=== PATIENT | female | born 1955 | race Caucasian/White ===

== ENCOUNTER → 2016-11-09 | Outpatient (CLI) | payer OTHER | LOC: FIMAGING 08:29 | PROVIDERS: ATTEND Surgery | DX: K22.8 Other specified diseases of esophagus (principal); K44.9 Diaphragmatic hernia without obstruction or gangrene; R13.10 Dysphagia, unspecified; E04.1 Nontoxic single thyroid nodule ==

== ENCOUNTER 2017-02-08 10:39 | Observation (INO) | payer OTHER ==
[2017-02-08] MEDS ORDERED: LR 1,000 ML IV SCH (11:00)
[2017-02-08] MEDS ORDERED: CLINDAMYCIN 900 MG/DEXTROSE 50 ML IV ONE (11:00)
[2017-02-08] MEDS ORDERED: NITROGLYCERIN 0.4 MG BTL SL PRN (11:01)
[2017-02-08] MEDS ORDERED: LR 1,000 ML IV ONE (11:09)
--- NOTE | 2017-02-08 12:58 | PDANEPAE ---
ANE History of Present Illness 61 yo F with L thyroid mass here for thyroidectomy ANE Past Medical History - Cardiovascular History Hx Hypertension: Yes Hx Arrhythmias: No Hx Chest Pain: Yes Hx Coronary Artery / Peripheral Vascular Disease: Yes Hx CHF / Valvular Disease: No Hx Palpitations: No - Pulmonary History Hx COPD: No Hx Asthma/Reactive Airway Disease: No Hx Recent Upper Respiratory Infection: No Hx Oxygen in Use at Home: No - Neurologic History Hx Cerebrovascular Accident: No Hx Seizures: No Hx Dementia: No - Endocrine History Hx Diabetes: Yes - Renal History Hx Renal Disorders: Yes - Liver History Hx Hepatic Disorders: No - Neurological & Psychiatric Hx Hx Neurological and Psychiatric Disorders: No - Cancer History Hx Cancer: No - Congenital Disorder History Hx Congenital Disorders: No - GI History Hx Gastrointestinal Disorders: Yes - Chronic Pain History Chronic Pain: Yes (LOWER ABCK AND BILATERAL LEGS) ANE Review of Systems - Exercise capacity Exercise capacity: >=4 METS METS (RN): 4 METS - Systems Cardiac: Reports: chest pain - Cardio Pulmonary Function Testing Transthoracic echocardiogram (TTE): 10/2015 EF=60-65% otherwise normal ANE Patient History - Allergies Allergies/Adverse Reactions: ergot alkaloids [Ergot Alkaloids] Allergy (Severe, Verified 01/29/17 15:08) cant walk Penicillins Allergy (Severe, Verified 01/29/17 15:08) Rash cefaclor [From Ceclor] Allergy (Intermediate, Verified 01/29/17 15:07) bruising cyclobenzaprine HCl [From Flexeril] Allergy (Mild, Verified 01/29/17 15:08) rash, swelling metoclopramide HCl [From Reglan] Allergy (Mild, Verified 01/29/17 15:08) anxiety attacks plastic tape Allergy (Intermediate, Uncoded 01/29/17 15:08) - Home Medications Home Medications: Aspirin EC [Aspirin EC 81 mg (*)] 81 mg PO DAILY 01/29/17 [Last Taken 02/08/17] Atorvastatin Calcium [Lipitor 20 mg (*)] 20 mg PO DAILY 01/29/17 [Last Taken ] Cholecalciferol Vit D3 [Vitamin D3 (*)] 1,000 units PO DAILY 01/29/17 [Last Taken 01/31/17] Lisinopril [Zestril 10 mg (*)] 10 mg PO DAILY 01/29/17 [Last Taken 02/07/17] Metoprolol Tartrate [Lopressor 25 mg (*)] 25 mg PO BID 01/29/17 [Last Taken ] Nitroglycerin [Nitrostat 0.4 mg (*)] 0.4 mg SL AD PRN 01/29/17 [Last Taken 01/24] [place]-3 Fatty Acids [Fish Oil 1000 mg (*)] 2,000 mg PO DAILY 01/29/17 [Last Taken 01/31/17] metFORMIN HCL [Metformin HCl] 500 mg PO BIDMEAL 01/29/17 [Last Taken 02/07/17] - NPO status NPO Since - Liquids (Date): 02/08/17 NPO Since - Liquids (Time): 07:45 NPO Since - Solids (Date): 02/07/17 NPO Since - Solids (Time): 23:45 - Anes Hx Anes Hx: post operative nausea and vomiting - Smoking Hx Smoking Status: Never smoked - Alcohol Use Alcohol Use: None - Family Anes Hx Family Anes Hx: none ANE Labs/Vital Signs - Vital Signs Blood Pressure: 131/74 Heart Rate: 68 Respiratory Rate: 14 O2 Sat (%): 93 Height: 157.48 cm Weight: 79.379 kg ANE Physical Exam - Airway Neck exam: FROM Mallampati Score: Class 3 Mouth exam: normal dental/mouth exam - Pulmonary Pulmonary: no rales or rhonchi, clear to auscultation - Cardiovascular Cardiovascular: regular rate and rhythym, no murmur, rub, or gallop - ASA Status ASA Status: III ANE Anesthesia Plan Anesthesia Plan: general endotracheal anesthesia (NIM tube)
[2017-02-08] MEDS ORDERED: MIDAZOLAM 2 MG/2 ML VIAL IVP ONE (13:00)
--- NOTE | 2017-02-08 13:05 | PDHPUP ---
History & Physical Update H&P update statement: This history and physical update is based on an assessment of the patient which was completed after admission or registration (within 24 hours), but prior to the surgery/procedure.
[2017-02-08] MEDS ORDERED: SCOPOLAMINE HYDROBROMIDE 1.5 MG PATCH TD SCH (13:15)
[2017-02-08] MEDS ORDERED: THROMBIN (BOVINE) 5,000 UNIT VIAL TP ONE (13:19)
[2017-02-08] MEDS ORDERED: BUPIVACAINE 0.25% 30 ML SDV ONE (13:19)
[2017-02-08] MEDS ORDERED: PROPOFOL 200 MG/20 ML VIAL ONE (13:25)
[2017-02-08] MEDS ORDERED: fentaNYL 100 MCG/2 ML INJ ONE ×2 (13:25→17:22)
[2017-02-08] MEDS ORDERED: LIDOCAINE 2% 100 MG/5 ML SYR ONE (13:37)
[2017-02-08] MEDS ORDERED: PROPOFOL/EMULSION 500 MG/50 ML BOTTLE IV ONE ×2 (14:09→15:06)
[2017-02-08] MEDS ORDERED: HYDROmorphONE/DILAUDID 2 MG/ML INJ ONE (14:19)
[2017-02-08] MEDS ORDERED: HYDROmorphONE/DILAUDID 1 MG/ML SYR IVP PRN ×2 (14:35→19:42)
[2017-02-08] MEDS ORDERED: ACETAMINOPHEN 500 MG TAB PO PRN (14:35)
[2017-02-08] MEDS ORDERED: ONDANSETRON 4 MG/2 ML VIAL IVP PRN (14:35)
[2017-02-08] MEDS ORDERED: NALOXONE HCL 0.4 MG/ML INJ IVP PRN (14:35)
[2017-02-08] MEDS ORDERED: fentaNYL 100 MCG/2 ML INJ IVP PRN (14:35)
[2017-02-08] MEDS ORDERED: OXYCODONE/APAP 5/325 TAB PO PRN (14:35)
[2017-02-08] MEDS ORDERED: PROMETHAZINE HCL 25 MG/ML INJ IVP PRN (14:35)
[2017-02-08] MEDS ORDERED: DEXAMETHASONE 4 MG/ML VIAL ONE (14:36)
[2017-02-08] MEDS ORDERED: ONDANSETRON 4 MG/2 ML VIAL ONE (14:36)
[2017-02-08] MEDS ORDERED: ESMOLOL HCL 100 MG/10 ML VIAL IV ONE (15:04)
[2017-02-08] MEDS ORDERED: LABETALOL HCL 50 MG/10 ML SYR ONE (16:13)
[2017-02-08] MEDS ORDERED: LABETALOL HCL 50 MG/10 ML SYR IVP ONE ×2 (16:16→16:54)
--- NOTE | 2017-02-08 16:19 | POSTANESTH ---
Post Anesthetic Evaluation Cardiovascular Status: Normal, Stable, Similar to Pre-Op Cond, Tx Hyper/Hypo- tension (BP 215/105, labetalol 10 mg ivp to 177/99) Respiratory Status: Normal, Stable, Similar to Pre-op Cond. Level of Consciousness/Mental Status: Can Participate in Eval, Alert and Oriented Pain Control: Adequate, Prn Tx Ordered Nausea/Vomiting Control: Adequate, Prn Tx Ordered Complications Possibly Related to Anesthesia: None Noted
--- NOTE | 2017-02-08 16:27 | POSTOPPROG ---
Post Op Note Date of Operation: 02/08/17 Surgeon: Nacho Wilburn (, FACS) [employer] P[employer] Tester: Judy Marcelo MD Anesthesiologist: Ric Melton MD Anesthesia: GET(General Endotracheal) Pre-op Diagnosis: multinodular goiter/left lobe Post-op Diagnosis: same Indication: symptomatic goiter Procedure: left thyroid lobectomy and isthmusectomy Findings: multiple colloid nodules/nothing supsicous for malignancy Inf/Abcess present in the surg proc area at time of surgery?: No EBL: 125ml Drains: Tu Guerrero (10 Fr.) Specimen(s): left thyroid lobe and isthmus
--- NOTE | 2017-02-08 16:54 | PDGENHP ---
History and Physical History and Physical: HISTORY AND PHYSICAL CC:I am asked by Dr. Nacho Wilburn to assess and assist in the care of this patient who is admitted for elective thyroidectomy and has history of heart and disease and diabetes HISTORY: this patient has a history of multinodular goiter and is brought in at this time by Dr. Wilburn for partial thyroidectomy. Findings and surgery were multiple colloid nodules in the left lobe of thyroid without any obvious malignant changes grossly. Patient underwent left thyroid lobectomy and isthmusectomy. There been no complications during or after surgery to this point. I am evaluating the patient in the postop recovery unit where she is awake. She does not have any pain around the neck. Her voice is somewhat weak. She has mild headache. There is no chest pain shortness of breath or nausea. She has a history of coronary disease with stent and her anginal pain is a distinct discomfort in the interscapular back area which she is not experiencing today. She has no pain in her legs. There are no symptoms of calcium abnormality at this time. The patient's nurses noted some higher blood pressures in the postoperative setting. Her initial blood pressure in recovery room was at 205/110. The patient has received 2 doses of IV labetalol and is still having high blood pressures but notably lower than the initial reading. There been no other concerning factors so far in the recovery area. ROS: A comprehensive 10 system review revealed no other significant findings PAST MEDICAL HISTORY: Coronary artery disease status post stent in 2011 with 3 normal angiography findings since then Chronic low back pain Diabetes mellitus type 2 Hypertension Chronic kidney disease Thyroid biopsy Cervical and lumbar spine surgeries FAMILY MEDICAL HISTORY: No cancers and no specific thyroid abnormalities SOCIAL HISTORY: No tobacco or alcohol use no illicit drug use MEDICATIONS: The patients list has been reconciled by our clinical pharmacist in the EMR and I have reviewed the medicine list. Her metformin has been held appropriately at this time, though her aspirin beta-jocelynn and statin medicines have all been continued which is appropriate. PHYSICAL EXAMINATION: Vital Signs:So far some hypertension in the postop recovery area otherwise stable without fever [employer]: on my review shows a sinus rhythm in the recovery room Examination: General: awake but slightly groggy, oriented, good mentation, relaxed Skin: warm, dry, good color, no rash HEENT: normal Neck: the dressing on her surgical site is dry ; there is a Tu-Guerrero drain in the neck wound is draining a small amount of red blood Resps: relaxed Lungs: clear breath sounds Heart: regular, no murmur Abdomen: soft, nondistended, nontender, +BS, no mass Lower Extremities: no edema, warm No Bleeding or bruising IV site: looks normal LABORATORY DATA: there are no laboratory studies done today Her last TSH was normal in May 2016 A week ago she had a hemoglobin A1c which is normal at 6 ASSESSMENT: - status post successful left thyroid lobectomy for multinodular goiter, pathology pending -Some hypertension in the postoperative recovery area with a history of hypertension -Diabetes type 2 with good control at home with a normal hemoglobin A1c - CAD with hx of stent, on ASA and statin, stable at this time PLANS: will continue to monitor her blood pressures closely as she comes out of recovery and treat as appropriate Regular glucose monitoring and treat as indicated Follow for any signs of cardiac symptoms or other concerning problems With her right thyroid lobe remaining it is unlikely there the any calcium issues will check calcium in the morning and follow for symptoms I have reviewed the patient's case in detail with Dr. Nacho Wilburn I have reviewed the patient's past medical records as part of this assessment, including outside laboratory data and prior visit notes
[2017-02-08] MEDS ORDERED: hydrALAZINE 20 MG/ML VIAL IVP PRN (17:13)
[2017-02-08 17:17] LABS: IONIZED CALCIUM 1.21 MMOL/L (1.12-1.30)
--- NOTE | 2017-02-08 17:32 | GOP ---
[f rep st] OPERATIVE REPORT DATE OF OPERATION: 02/08/2017 SURGEON: Nacho Wilburn MD, FACS [employer] SYSTEM[employer] DEVELOPER: Judy Marcelo MD. ANESTHESIA: General endotracheal (NIMS tube) Ric Melton MD. PREOPERATIVE DIAGNOSIS: 1. Left thyroid nodule. 2. Multinodular goiter. 3. Anticoagulation with aspirin for indwelling coronary stent. POSTOPERATIVE DIAGNOSIS: 1. Left thyroid nodule with extension to upper mediastinum 2. Multinodular goiter. 3. Anticoagulation with aspirin for indwelling coronary stent. PROCEDURE PERFORMED: Left thyroid lobectomy and isthmusectomy/transcervical substernal resection FINDINGS: Multinodular goiter with enlargement of the left lobe extending into the upper mediastinum. No suspicious nodules or evidence of malignancy by preliminary pathology. Permanent section pending. Moderate venous oozing from the thyroid. ESTIMATED BLOOD LOSS: 125 mL. DESCRIPTION OF PROCEDURE: After informed consent was obtained, the patient was brought to the operating room and placed under general anesthesia. The neck was prepped and draped in the usual fashion. Before proceeding, a time-out and identification of patient was performed. 0.25% Marcaine was used to infiltrate the planned incision site which had been marked preoperatively. Skin was incised with a scalpel. Dissection was carried out through subcutaneous tissues and platysma muscle with cautery. Flaps were elevated cephalad to above the cricothyroid membrane and inferiorly to the sternal notch. The left lobe was enlarged and was palpated. Noted to be soft without firm nodules. The inferior pole extended well below the head of the clavicle and was retro-manubrial in position. The middle thyroid vein was dispatched with the Harmonic Scalpel. The gland was rotated medially. Superior and inferior thyroidal vessels were taken down with the harmonic Scalpel and the gland was bluntly dissected from the upper mediastinum into the neck. The recurrent laryngeal nerve was identified by anatomic location and position confirmed with the NIMS tube with a nerve stimulator set at 1 milliamp. The inferior parathyroid gland was identified. The superior gland could not be identified during the procedure. There was moderate venous oozing throughout the case until the gland was detached at the isthmus after the ligament of Rasheed immediately anterior to the recurrent nerve. The gland was divided in the isthmus using the harmonic Scalpel, removed from the field and submitted for gross inspection, as well as permanent section. Hemostasis was secured with bipolar cautery. The area was irrigated and hemostasis appeared secure. A small piece of Surgicel was placed adjacent to the trachea and overlying the recurrent nerve. A 10-Macedonian round Tu-Guerrero drain was brought through a separate stab wound inferiorly and placed deep to the strap muscles. These were closed over the midline with 3-0 Vicryl sutures. I should note that while we were waiting for pathology to assess the appearance of the gland, the right gland was mobilized and palpated and there were no suspicious nodules noted. The platysma muscle was approximated with 3- 0 Monocryl suture. Skin was closed with 4-0 Monocryl suture in a subcuticular fashion. Topical Dermabond was applied. The drain was secured to the skin with 3-0 nylon suture and sterile dressings were placed. The patient was extubated and brought to the recovery room in satisfactory condition. Needle, sponge, and instrument counts were correct. COMPLICATIONS: None. /[id number]/MODL MTDD
[2017-02-08] MEDS: ONDANSETRON 4 MG/2 ML VIAL IVP PRN ×2 (17:59→22:49)
[2017-02-08] MEDS: D5W 1/2 NS W/ 20 KCl/L 1,000 ML IV SCH (18:00)
[2017-02-08] MEDS: HYDROCODONE/APAP 5/325 TAB PO PRN (20:08)
[2017-02-08] MEDS: METOPROLOL TARTRATE 25 MG TAB PO SCH (20:08)
[2017-02-08] MEDS: DEXAMETHASONE 4 MG/ML VIAL IVP SCH (21:29)
[2017-02-08 22:34] LABS: IONIZED CALCIUM 1.13 MMOL/L (1.12-1.30)
[2017-02-08 23:08] VITALS: O2SAT 91
[2017-02-08] MEDS ORDERED: BACITRACIN OINTMENT 1 PACKET TP ONE (23:30)
[2017-02-08] MEDS ORDERED: PNEUMOCOCCAL 0.5ML VACCINE VIAL IM ONE (23:49)
[2017-02-09] MEDS: DEXAMETHASONE 4 MG/ML VIAL IVP SCH (05:02)
[2017-02-09] MEDS: D5W 1/2 NS W/ 20 KCl/L 1,000 ML IV SCH (06:15)
[2017-02-09 06:22] LABS: IONIZED CALCIUM 1.19 MMOL/L (1.12-1.30)
[2017-02-09 07:08] LABS: ANION GAP 13 mEq/L (8-16); CALCIUM 9.7 mg/dL (8.5-10.4); CARBON DIOXIDE 22 mEq/l (22-31); CHLORIDE 105 mEq/L (97-110); CREATININE 0.6 mg/dL (0.6-1.0); GLOMERULAR FILTRATION RATE > 60; GLUCOSE 189 mg/dL (70-100); POTASSIUM 4.5 mEq/L (3.5-5.2); SODIUM 140 mEq/L (134-144)
[2017-02-09 07:40] VITALS: BP 122/73; PULSE 84; RESP 12; TEMP 98
[2017-02-09] MEDS ORDERED: ASPIRIN EC 81 MG TAB PO SCH (09:00)
[2017-02-09] MEDS ORDERED: ATORVASTATIN CALCIUM 20 MG TAB PO SCH (09:00)
[2017-02-09] MEDS ORDERED: LISINOPRIL 10 MG TAB PO SCH (09:00)
[2017-02-09] MEDS: METOPROLOL TARTRATE 25 MG TAB PO SCH (09:16)
[2017-02-09] MEDS: HYDROCODONE/APAP 5/325 TAB PO PRN (09:26)
[2017-02-09] MEDS ORDERED: METHOCARBAMOL 750 MG TAB PO PRN (10:18)
[2017-02-09] MEDS ORDERED: FAMOTIDINE 20 MG TAB PO SCH (10:30)
--- NOTE | 2017-02-09 10:44 | PDDCSUM ---
Discharge Summary Discharge Summary: DOA: 02/08/17 DOD: 02/09/17 DC Dx: 1.substernal goiter 2. hx CAD/coronary stent 3. HTN 4. obesity 5. type II DM 6. s/p ACD/fusion 7. anticoagualtion with ASA Surgery: Left thyroid lobectomy/resection substernal goiter Course: 61 y/o female admitted for elective left thyroidectomy and found to have a substernal goiter. She underwent left thyroid lobectomy and a drain was placed. Ca++ levels remained normal after surgery and her drain was removed the following day. She had a normal voice post op. She had mild elevation of her BP post op and required supplemental Labetelol and Hydralazine to control. The morning of discharge she was afebrile, ambulatory and tolerated a soft diet. Her main complaint was neck pain posteriorly and she was started on Robaxin 750 mg TID prn in addition to [place] for pain Rx written: [place] #20, Robaxin #20 she will continue her pre-op medications per the medication reconciliation form FU my office 1-2 weeks final pathology is pending. Mine Wilburn MD, FACS
[2017-02-11] MEDS ORDERED: PATCH REMOVAL 1 EA PATCH TD SCH (13:01)
== END 2017-02-09 13:13 | disposition home or self-care (01) ==
LOC: PREOBSVTOIN 10:39 → F3E 10:40 → PREINTOOBSV 13:42 → F3E 17:33
PROVIDERS: ADMIT Surgery; ATTEND Surgery
PROC: 0GTG0ZZ Resection of Left Thyroid Gland Lobe, Open Approach (ICD-10-PCS; principal; 2017-02-08 13:45)
DX: E04.2 Nontoxic multinodular goiter (principal); I25.10 Atherosclerotic heart disease of native coronary artery without angina pectoris; Z23 Encounter for immunization; Z79.01 Long term (current) use of anticoagulants; E11.9 Type 2 diabetes mellitus without complications; Z95.5 Presence of coronary angioplasty implant and graft; I10 Essential (primary) hypertension; E78.5 Hyperlipidemia, unspecified; M54.5 Low back pain; E66.9 Obesity, unspecified; Z68.32 Body mass index [BMI] 32.0-32.9, adult
CPT/HCPCS: 60225; 90471; G0378; G0009; J1100; J1170; J2001; J2250; J2405; J2704; J3010

== ENCOUNTER 2017-02-09 23:08 | Observation (INO) | payer OTHER ==
[2017-02-09] MEDS ORDERED: diphenhydrAMINE 25 MG CAP PO ONE (23:38)
[2017-02-09] MEDS ORDERED: FAMOTIDINE 20 MG TAB PO ONE (23:39)
[2017-02-09] MEDS ORDERED: predniSONE 20 MG TAB PO ONE (23:39)
--- NOTE | 2017-02-09 23:47 | EDPHY ---
H & P Stated Complaint: might be having an allergic reation, flushed Source: Patient Exam Limitations: No limitations - Personal History Tetanus Vaccine Date: 11/2011 - Medical/Surgical History Hx Asthma: No Hx Chronic Respiratory Disease: No Hx Diabetes: Yes Hx Cardiac Disease: Yes Hx Renal Disease: No Hx Cirrhosis: No Hx Alcoholism: No Hx HIV/AIDS: No Hx Splenectomy or Spleen Trauma: No Other PMH: cardiac stent 06/2012, lower back & cervical fusions. appy, csec, ortho surgery, knees, ankles. thyoidectomy - Social History Smoking Status: Never smoked Time Seen by Provider: 02/09/17 23:17 HPI/ROS: CHIEF COMPLAINT: possible allergic reaction HISTORY OF PRESENT ILLNESS: 61-year-old female presents emergency department reporting eyes itching with swelling, flushed face, fullness in throat 10 minutes after taking her medications tonight. Patient was discharged earlier today from the hospital after having a left thyroid lobe activity with a resection of a substernal goiter. At 9:45 pm she took a Greybull, metoprolol and 3 stool softeners, 10 minutes later these symptoms began. Patient denies difficulty breathing, no wheezing. She denies rash. Patient reports she started feeling a swelling and soreness in her throat, she put an ice pack over her surgical incision though reports it was not surgical pain, it was in her throat. Patient denies fevers or chills, no nausea, vomiting or diarrhea. Patient has multiple medication allergies. REVIEW OF SYSTEMS: A comprehensive 10 point review of systems is otherwise negative aside from elements mentioned in the history of present illness. (Natali Hills) - Physical Exam Exam: Physical Exam Gen: Alert and Oriented, NAD HEENT: PERRL, moist mucous membranes, posterior pharynx with no erythema, uvula midline, no swelling NECK: no meningismus, no swelling, surgical incision with no surrounding erythema or drainage CV: regular rate and regular rhythm PULM: CTAB, no wheezes, no stridor ABDOMEN: soft, non tender to palpation, BS present BACK: No CVA tenderness NEURO: Neurologically grossly intact EXTREMITIES: normal appearing SKIN: Rash to chest from tape PSYCH: answers questions appropriately. (Natali Hills) Constitutional: Initial Vital Signs Temperature (C) 37 C 02/09/17 23:12 Heart Rate 88 02/09/17 23:12 Respiratory Rate 20 02/09/17 23:12 Blood Pressure 153/64 H 02/09/17 23:12 O2 Sat (%) 94 02/09/17 23:12 O2 Delivery Mode Room Air Allergies/Adverse Reactions: ergot alkaloids [Ergot Alkaloids] Allergy (Severe, Verified 02/09/17 23:12) cant walk Penicillins Allergy (Severe, Verified 02/09/17 23:12) Rash cefaclor [From Ceclor] Allergy (Intermediate, Verified 02/09/17 23:12) bruising cyclobenzaprine HCl [From Flexeril] Allergy (Mild, Verified 02/09/17 23:12) rash, swelling metoclopramide HCl [From Reglan] Allergy (Mild, Verified 02/09/17 23:12) anxiety attacks plastic tape Allergy (Intermediate, Uncoded 02/09/17 23:12) Home Medications: Medication Instructions Recorded [place]-3 Fatty Acids [Fish Oil 1000 2,000 mg PO DAILY 01/29/17 mg (*)] metFORMIN HCL [Metformin HCl] 500 mg PO BIDMEAL 01/29/17 Aspirin EC [Aspirin EC 81 mg (*)] 81 mg PO DAILY #0 tab 02/09/17 Atorvastatin Calcium [Lipitor 20 20 mg PO DAILY #0 tab 02/09/17 mg (*)] Famotidine [Pepcid 20 MG (*)] 20 mg PO DAILY #0 tab 02/09/17 Lisinopril [Zestril 10 mg (*)] 10 mg PO DAILY #0 tab 02/09/17 Metoprolol Tartrate [Lopressor 25 25 mg PO BID #0 tab 02/09/17 mg (*)] Nitroglycerin [Nitrostat 0.4 mg 0.4 mg SL AD PRN #0 btl 02/09/17 (*)] Acetaminophen [Tylenol ES 500 mg 500 - 1,000 mg PO Q6HRS PRN #0 tab 02/10/17 (*)] Carisoprodol [Soma (*)] 350 mg PO TIDMEAL #60 tab 02/10/17 Cholecalciferol Vit D3 [Vitamin D3 1,000 units PO DAILY 02/10/17 (*)] Docusate Sodium [Colace 100 MG (*)] 100 mg PO BID 06/18/17 Medical Decision Making ED Course/Re-evaluation: IV established, CBC, chemistry panel, ionized calcium and phosphorus ordered. Patient is given Benadryl, Pepcid and prednisone. The patient has normal vital signs and a normal physical exam, she has no signs of anaphylaxis. Due to her recent surgery and airway complaints the patient will be admitted to the hospitalist for observation. (Natali Hills) Differential Diagnosis: Diagnosis considered but not limited to allergic reaction, surgical complication , medication reaction (Natali Hills) - Data Points Laboratory Results: Laboratory Results 02/10/17 00:05 02/10/17 00:05 Medications Given: Discontinued Medications Aspirin Buffered (Aspirin Ec) 81 mg PO DAILY JONAH Stop: 08/09/17 14:59 Last Admin: 02/10/17 17:10 Dose: Not Given Atorvastatin Calcium (Lipitor) 20 mg PO DAILY JONAH Stop: 08/09/17 14:59 Last Admin: 02/10/17 17:10 Dose: Not Given Carisoprodol (Soma) 350 mg PO TIDMEAL JONAH Stop: 08/09/17 11:59 Last Admin: 02/10/17 12:14 Dose: 350 mg Cholecalciferol (Vitamin D) 1,000 units PO DAILY JONAH Stop: 08/09/17 14:59 Last Admin: 02/10/17 17:10 Dose: Not Given Diphenhydramine HCl (Benadryl) 50 mg PO EDNOW ONE Stop: 02/09/17 23:39 Last Admin: 02/09/17 23:44 Dose: 50 mg Docusate Sodium (Colace) 100 mg PO BID JONAH Stop: 08/09/17 14:59 Last Admin: 02/10/17 17:11 Dose: Not Given Famotidine (Pepcid) 40 mg PO EDNOW ONE Stop: 02/09/17 23:40 Last Admin: 02/09/17 23:44 Dose: 40 mg Famotidine (Pepcid) 20 mg PO BID JONAH Stop: 08/09/17 08:59 Last Admin: 02/10/17 09:03 Dose: 20 mg Famotidine (Pepcid) 20 mg PO DAILY JONAH Stop: 08/09/17 14:59 Last Admin: 02/10/17 17:11 Dose: Not Given Sodium Chloride (Ns) 1,000 mls @ 75 mls/hr IV CONT [facility] Stop: 08/09/17 00:44 Last Admin: 02/10/17 14:46 Dose: 1,000 mls Insulin Human Lispro (Humalog Lispro) 0 unit SC TIDMEAL [facility] PRN Reason: Protocol Stop: 08/09/17 07:59 Last Admin: 02/10/17 17:11 Dose: Not Given Lisinopril (Zestril) 10 mg PO DAILY [facility] Stop: 08/09/17 14:59 Last Admin: 02/10/17 17:11 Dose: Not Given Metoprolol Tartrate (Lopressor) 25 mg PO BID [facility] Stop: 08/09/17 14:59 Last Admin: 02/10/17 17:17 Dose: Not Given Prednisone (Prednisone) 40 mg PO EDNOW ONE Stop: 02/09/17 23:40 Last Admin: 02/09/17 23:44 Dose: 40 mg Prednisone (Prednisone) 40 mg PO DAILY [facility] Stop: 08/09/17 08:59 Last Admin: 02/10/17 09:03 Dose: 40 mg Departure - Departure Disposition: [facility] Inpatient Acute Clinical Impression: Allergic reaction Qualifiers: Encounter type: initial encounter Qualified Code(s): T78.40XA - Allergy, unspecified, initial encounter Condition: Good
[2017-02-10 00:15] LABS: IONIZED CALCIUM 1.15 MMOL/L (1.12-1.30)
[2017-02-10 00:17] LABS: % IMMATURE GRANULYOCYTES 0.6 % (0.0-1.1); ABSOLUTE IMMATURE GRANULOCYTES 0.14 10^3/uL (0.00-0.10); ADD DIFF? NO; ADD MORPH? NO; ADD SCAN? NO; ATYPICAL LYMPHOCYTE FLAG 0 (0-99); FRAGMENT RBC FLAG 0 (0-99); HEMATOCRIT 36.9 % (38.0-47.0); HEMOGLOBIN 12.1 g/dL (12.6-16.3); LEFT SHIFT FLG 0 (0-99); LIPEMIA HEMOLYSIS FLAG 80 (0-99); MEAN CELL HEMOGLOBIN 28.9 pg (27.9-34.1); MEAN CELL HEMOGLOBIN CONCENTR. 32.8 g/dL (32.4-36.7); MEAN CELL VOLUME 88.3 fL (81.5-99.8); PLATELET CLUMPS FLAG 0 (0-99); PLATELET COUNT 296 10^3/uL (150-400); RED BLOOD CELL COUNT 4.18 10^6/uL (4.18-5.33)
[2017-02-10] MEDS ORDERED: ONDANSETRON 4 MG/2 ML VIAL IVP PRN (00:42)
[2017-02-10] MEDS ORDERED: diphenhydrAMINE 25 MG CAP PO PRN (00:42)
[2017-02-10] MEDS ORDERED: ACETAMINOPHEN 500 MG TAB PO PRN (00:42)
[2017-02-10] MEDS ORDERED: ONDANSETRON DISINTEGRATING 4 MG TAB PO PRN (00:42)
[2017-02-10 00:44] LABS: ANION GAP 13 mEq/L (8-16); CALCIUM 9.4 mg/dL (8.5-10.4); CARBON DIOXIDE 21 mEq/l (22-31); CHLORIDE 106 mEq/L (97-110); GLOMERULAR FILTRATION RATE 56; GLUCOSE 209 mg/dL (70-100); SODIUM 140 mEq/L (134-144)
[2017-02-10] MEDS ORDERED: NS 1,000 ML IV SCH (00:45)
[2017-02-10] MEDS ORDERED: D50W 25 GM/50 ML SYR IVP PRN (01:23)
--- NOTE | 2017-02-10 03:23 | PDGENHP ---
History and Physical - Chief Complaint throat swelling - History of Present Illness Patient is a 61 year old female with CAD, DM2, HTN, chronic neck/back pain and nontoxic goiter who was admitted on 02/08 for elective thyroid lobectomy. Patient underwent the procedure on 02/08, remained in the hospital overnight for observation and then was discharged on 02/09 after an uncomplicated course. On discharge, patient was given prescriptions for Flora, Robaxin and senna. She was discharged at around 1pm, ate lunch without event, took her prescribed norco , robaxin and senna at around 7pm. Shortly after this, she began experiencing significant warmth, facial flushing, hoarseness of her voice and the sensation of throat swelling. Patient reports she has previously been exposed to all of the medications she took today without previous reaction. She has a history of allergies to several medications, has never before had an anaphylactic reaction , but felt her current symptoms felt similar to an allergic reaction, so she decided to come to the ED for further evaluation. She denies any overt fever, cough, shortness of breaht, chest pain, nausea, vomiting, diarrhea. On arrival to the ED, patient was afebrile and hemodynamically stable, saturating well on room air. She was given PO prednisone, benadryl and famotidine with significant improvement in her symptoms. Labs were then drawn and were significant for leukocytosis, normal BMP, normal iCa level. She was then admitted for further management. History Information - Allergies/Home Medication List Allergies/Adverse Reactions: ergot alkaloids [Ergot Alkaloids] Allergy (Severe, Verified 02/09/17 23:12) cant walk Penicillins Allergy (Severe, Verified 02/09/17 23:12) Rash cefaclor [From Ceclor] Allergy (Intermediate, Verified 02/09/17 23:12) bruising cyclobenzaprine HCl [From Flexeril] Allergy (Mild, Verified 02/09/17 23:12) rash, swelling metoclopramide HCl [From Reglan] Allergy (Mild, Verified 02/09/17 23:12) anxiety attacks plastic tape Allergy (Intermediate, Uncoded 02/09/17 23:12) Home Medications: Aspirin EC [Aspirin EC 81 mg (*)] 81 mg PO DAILY 01/29/17 [Last Taken 02/08/17] Atorvastatin Calcium [Lipitor 20 mg (*)] 20 mg PO DAILY 01/29/17 [Last Taken ] Lisinopril [Zestril 10 mg (*)] 10 mg PO DAILY 01/29/17 [Last Taken 02/07/17] Metoprolol Tartrate [Lopressor 25 mg (*)] 25 mg PO BID 01/29/17 [Last Taken ] Nitroglycerin [Nitrostat 0.4 mg (*)] 0.4 mg SL AD PRN 01/29/17 [Last Taken 01/24] [place]-3 Fatty Acids [Fish Oil 1000 mg (*)] 2,000 mg PO DAILY 01/29/17 [Last Taken 01/31/17] metFORMIN HCL [Metformin HCl] 500 mg PO BIDMEAL 01/29/17 [Last Taken 02/07/17] Famotidine [Pepcid 20 MG (*)] 20 mg PO DAILY 02/09/17 [Last Taken Unknown] I have personally reviewed and updated: family history, medical history, social history, surgical history - Past Medical History Additional medical history: CAD s/p PCI x 1 in 2009. DM2 on oral meds. Hypertension. Chronic radicular back pain. nontoxic goiter - Surgical History Additional surgical history: cervical and lumbar kyphoplasties. R knee arthroscopy. b/l ankle arthroscopies. tonsillectomy. appendectomy - Family History Additional family history: M/F: CAD/MIs - Social History Smoking Status: Never smoked Alcohol Use: None Drug Use: None Additional social history: Patient lives with her , independent. Review of Systems ROS: 10pt was reviewed & negative except for what was stated in HPI & below Physical Exam Temp Pulse Resp BP Pulse Ox 36.8 C 68 17 119/61 93 02/10/17 01:01 02/10/17 01:01 02/10/17 01:01 02/10/17 01:01 02/10/17 01:01 Constitutional: no apparent distress, appears nourished, not in pain Eyes: PERRL, anicteric sclera, EOMI Ears, Nose, Mouth, Throat: moist mucous membranes, hearing normal, ears appear normal, no oral mucosal ulcers, other (no stridor; no tongue or gums swelling; anterior surgical scar well healing, no obvious erythema or purulence), No oral thrush Cardiovascular: regular rate and rhythym, no murmur, rub, or gallop, No JVD, No edema Peripheral Pulses: 2+: dorsalis-pedis (R), dorsalis-pedis (L) Respiratory: no respiratory distress, no rales or rhonchi, clear to auscultation Gastrointestinal: normoactive bowel sounds, soft, non-tender abdomen, no palpable masses, No guarding, No rebound, No distension Genitourinary: no bladder fullness, no bladder tenderness Skin: warm, normal color, no fluctuance, no induration, erythema (reactive erythema at site of previous adhesive tap on anterior chest wall; fine erythematous rash on L hand), No mottled Musculoskeletal: full muscle strength, no muscle tenderness, normal joint ROM, no joint effusions Neurologic: AAOx3, sensation intact bilaterally, CN II-XII Intact, No weakness, No numbness, No facial droop Psychiatric: interacting appropriately, not anxious, not encephalopathic, thought process linear Lab Data & Imaging Review 02/10/17 00:05 02/10/17 00:05 WBC 21.64 10^3/uL (3.80-9.50) H 02/10/17 00:05 RBC 4.18 10^6/uL (4.18-5.33) 02/10/17 00:05 Hgb 12.1 g/dL (12.6-16.3) L 02/10/17 00:05 Hct 36.9 % (38.0-47.0) L 02/10/17 00:05 MCV 88.3 fL (81.5-99.8) 02/10/17 00:05 MCH 28.9 pg (27.9-34.1) 02/10/17 00:05 MCHC 32.8 g/dL (32.4-36.7) 02/10/17 00:05 RDW 14.0 % (11.5-15.2) 02/10/17 00:05 Plt Count 296 10^3/uL (150-400) 02/10/17 00:05 MPV 10.0 fL (8.7-11.7) 02/10/17 00:05 Neut % (Auto) 80.6 % (39.3-74.2) H 02/10/17 00:05 Lymph % (Auto) 12.1 % (15.0-45.0) L 02/10/17 00:05 [place] % (Auto) 6.6 % (4.5-13.0) 02/10/17 00:05 Eos % (Auto) 0.0 % (0.6-7.6) L 02/10/17 00:05 Baso % (Auto) 0.1 % (0.3-1.7) L 02/10/17 00:05 Nucleat RBC Rel Count 0.0 % (0.0-0.2) 02/10/17 00:05 Absolute Neuts (auto) 17.43 10^3/uL (1.70-6.50) H 02/10/17 00:05 Absolute Lymphs (auto) 2.62 10^3/uL (1.00-3.00) 02/10/17 00:05 Absolute Monos (auto) 1.42 10^3/uL (0.30-0.80) H 02/10/17 00:05 Absolute Eos (auto) 0.00 10^3/uL (0.03-0.40) L 02/10/17 00:05 Absolute Basos (auto) 0.03 10^3/uL (0.02-0.10) 02/10/17 00:05 Absolute Nucleated RBC 0.00 10^3/uL (0-0.01) 02/10/17 00:05 Immature Gran % 0.6 % (0.0-1.1) 02/10/17 00:05 Immature Gran # 0.14 10^3/uL (0.00-0.10) H 02/10/17 00:05 Sodium 140 mEq/L (134-144) 02/10/17 00:05 Potassium 4.0 mEq/L (3.5-5.2) 02/10/17 00:05 Chloride 106 mEq/L (97-110) 02/10/17 00:05 Carbon Dioxide 21 mEq/l (22-31) L 02/10/17 00:05 Anion Gap 13 mEq/L (8-16) 02/10/17 00:05 BUN 22 mg/dL (7-23) 02/10/17 00:05 Creatinine 1.0 mg/dL (0.6-1.0) D 02/10/17 00:05 Estimated GFR 56 02/10/17 00:05 Glucose 209 mg/dL (70-100) H 02/10/17 00:05 Calcium 9.4 mg/dL (8.5-10.4) 02/10/17 00:05 Ionized Calcium 1.15 MMOL/L (1.12-1.30) 02/10/17 00:05 Phosphorus 3.4 mg/dL (2.5-4.5) 02/10/17 00:05 Assessment & Plan Assessment: Patient is a 61 year old female with HTN, DM2, CAD who underwent a partial thyroidectomy on 02/08, discharged home on 02/09 and now presents to the ED 8 hours after discharge with complaint of facial flushing, sensation of throat swelling and hoarse voice, concerning for a mild allergic reaction vs post- surgical complication. Plan: # flushing/subjective throat swelling Patient's description of her symptoms occurring shortly after starting her new prescriptions for Flora/Robaxin/Senna sounds consistent with an acute, mild allergic reaction. No evidence of oropharyngeal edema, no stridor on exam and no evidence of respiratory distress. It is not clear which medication has triggered the reaction, patient reports being exposed to all of them previously without reaction. Differential also includes post-surgical edema vs infection. That symptoms have improved over ED course is more consistent with allergy. Will continue benadryl, prednisone and pepcid overnight. # leukocytosis No obvious signs/symptoms of infection, patient does not meet SIRS criteria on presentation. May be reactive leukocytosis in post-op setting. Will check UA, monitor for fever/symptoms of acute infection and continue to trend CBC. If uptrending, consider imaging of the neck to evaluate for post-op infection. No indication for antibiotics at this time. # DM2 On oral meds in outpatient setting. Will resume home meds, place on sliding scale coverage prn. # HTN BP stable, resume home meds. # CAD Denies any cardiac symptoms presently. # dispo: admit to observation status # gen: cardiac diet DVT ppx: lovenox if inpatient for > 24 hours Full code
[2017-02-10 04:48] LABS: COLOR YELLOW; LEUKOCYTE ESTERASE,URINE NEGATIVE (NEGATIVE); NITRITE,URINE NEGATIVE (NEGATIVE)
[2017-02-10 05:24] LABS: % IMMATURE GRANULYOCYTES 0.5 % (0.0-1.1); ABSOLUTE IMMATURE GRANULOCYTES 0.08 10^3/uL (0.00-0.10); ADD DIFF? NO; ADD MORPH? NO; ADD SCAN? NO; ATYPICAL LYMPHOCYTE FLAG 0 (0-99); FRAGMENT RBC FLAG 0 (0-99); HEMOGLOBIN 12.1 g/dL (12.6-16.3); LEFT SHIFT FLG 0 (0-99); LIPEMIA HEMOLYSIS FLAG 80 (0-99); MEAN CELL HEMOGLOBIN 29.6 pg (27.9-34.1); MEAN CELL HEMOGLOBIN CONCENTR. 32.7 g/dL (32.4-36.7); MEAN CELL VOLUME 90.5 fL (81.5-99.8); MEAN PLATELET VOLUME 10.3 fL (8.7-11.7); PLATELET CLUMPS FLAG 10 (0-99); PLATELET COUNT 267 10^3/uL (150-400); RED BLOOD CELL COUNT 4.09 10^6/uL (4.18-5.33); RED CELL DISTRIBUTION WIDTH 14.3 % (11.5-15.2)
[2017-02-10 05:40] LABS: ANION GAP 10 mEq/L (8-16); CALCIUM 9.6 mg/dL (8.5-10.4); CARBON DIOXIDE 22 mEq/l (22-31); CHLORIDE 109 mEq/L (97-110); CREATININE 0.8 mg/dL (0.6-1.0); GLOMERULAR FILTRATION RATE > 60; GLUCOSE 146 mg/dL (70-100); POTASSIUM 4.7 mEq/L (3.5-5.2); SODIUM 141 mEq/L (134-144)
[2017-02-10 07:40] VITALS: BP 115/65; PULSE 64; RESP 16; TEMP 98
[2017-02-10] MEDS: INSULIN LISPRO 100 UNIT/ML SC SCH ×2 (08:31→17:11)
[2017-02-10] MEDS ORDERED: predniSONE 20 MG TAB PO SCH (09:00)
[2017-02-10] MEDS ORDERED: FAMOTIDINE 20 MG TAB PO SCH ×2 (09:00→15:00)
[2017-02-10] MEDS ORDERED: CARISOPRODOL 350 MG TAB PO SCH (12:00)
[2017-02-10 12:14] VITALS: O2SAT 95
[2017-02-10] MEDS ORDERED: NITROGLYCERIN 0.4 MG BTL SL PRN (14:59)
[2017-02-10] MEDS ORDERED: HYDROCODONE/APAP 5/325 TAB PO PRN (14:59)
[2017-02-10] MEDS ORDERED: LISINOPRIL 10 MG TAB PO SCH (15:00)
[2017-02-10] MEDS ORDERED: ASPIRIN EC 81 MG TAB PO SCH (15:00)
[2017-02-10] MEDS ORDERED: CHOLECALCIFEROL VIT D3 1,000 UNITS TAB PO SCH (15:00)
[2017-02-10] MEDS ORDERED: ATORVASTATIN CALCIUM 20 MG TAB PO SCH (15:00)
[2017-02-10] MEDS ORDERED: OMEGA-3 FATTY ACIDS 1,000 MG CAP PO SCH (15:00)
[2017-02-10] MEDS ORDERED: DOCUSATE SODIUM 100 MG CAP PO SCH (15:00)
[2017-02-10] MEDS ORDERED: METOPROLOL TARTRATE 25 MG TAB PO SCH (15:00)
--- NOTE | 2017-02-10 15:13 | PDDCSUM ---
Discharge Summary Discharge Summary: DISCHARGE DIAGNOSES: -suspected allergic reaction but with multiple medications hard to determine if a med or a food -s/p L thyroid lobectomy, no sign of complication -diabetes mellitus type 2 HOSPITAL COURSE SUMMARY: The patient presented with facial redness and swelling and a sense of throat swelling and mild hoarseness with no wheeze, no difficulty swallowing, no sob, no other hives, no abd pain or nausea. She can not say how long it lasted but it got better with medications in the ER. Onset was closest to a meal she ate that evening in a restaurant. Prior to that she had taken robaxin and norco, a couple hours earlier; these are both new medicines for her after surgery 02/08 but she has taken both of these meds without difficutly in the past. Her ongoing medications were not changed. There is a prior history of allergic reaction to flexeril. She had partial thyroidectomy 02/08 but no bleeding, neck mass or wound issues were noted. Calcium remained in normal range. She had no recurrence of symptoms in the hospital. She was given a trial of soma for muscle relaxor and tolerated that well here. MEDICATION CHANGES: stop norco and robaxin addition of soma prn FOLLOW-UP PLAN: -as planned with Dr Wilburn -make an appointment with an indoor landscaper/gardener to evaluate this episode -make a list of everything she ate last evening to take with her to the indoor landscaper/gardener
[2017-02-10] MEDS ORDERED: metFORMIN HCL 500 MG TAB PO SCH (18:00)
== END 2017-02-10 17:00 | disposition home or self-care (01) ==
LOC: F1N 02-10 01:08
PROVIDERS: ADMIT Internal Medicine; ATTEND Internal Medicine
DX: R22.0 Localized swelling, mass and lump, head (principal); T44.4X5A Adverse effect of predominantly alpha-adrenoreceptor agonists, initial encounter; T44.7X5A Adverse effect of beta-adrenoreceptor antagonists, initial encounter; T47.2X5A Adverse effect of stimulant laxatives, initial encounter; D72.829 Elevated white blood cell count, unspecified; I10 Essential (primary) hypertension; Z95.5 Presence of coronary angioplasty implant and graft; I25.10 Atherosclerotic heart disease of native coronary artery without angina pectoris; E11.9 Type 2 diabetes mellitus without complications; Z98.1 Arthrodesis status; Z88.0 Allergy status to penicillin; Z88.1 Allergy status to other antibiotic agents
CPT/HCPCS: 71020; G0378

== ENCOUNTER 2017-07-27 14:34 | Observation (INO) | payer OTHER ==
--- NOTE | 2017-07-27 14:51 | CPEKG ---
Heart Rate: 66 RR Interval: 909 P-R Interval: 172 QRSD Interval: 82 QT Interval: 404 QTC Interval: 424 P [place]: 52 QRS [place]: 52 T Wave [place]: 6 EKG Severity - BORDERLINE ECG - EKG Impression: SINUS RHYTHM EKG Impression: PROBABLE LEFT ATRIAL ABNORMALITY EKG Impression: BORDERLINE T WAVE ABNORMALITIES Electronically Signed By: Dominick Delaney 27-Jul-2017 15:17:36
[2017-07-27] MEDS ORDERED: ASPIRIN 81 MG CHEWABLE TAB PO ONE (14:56)
[2017-07-27] MEDS ORDERED: NITROGLYCERIN/DEXTROSE 250 ML IV ONE (14:56)
[2017-07-27] MEDS ORDERED: NITROGLYCERIN/D5W 50 MG/250 ML BOTTLE IV ONE (15:09)
--- NOTE | 2017-07-27 15:14 | EDPHY ---
H & P Time Seen by Provider: 07/27/17 14:48 HPI/ROS: CHIEF COMPLAINT: Posterior chest tightness HISTORY OF PRESENT ILLNESS: 62 year old woman was a history of cardiac stenting [place] [address] Burk. This morning at 6:00 a.m. and then worse at 8: 30 a.m. she had what she describes as her angina pain which is tightness between her shoulder blades and pressure. It is identical to her symptoms that got her stent in 2011. She says she had a cardiac catheterization without intervention in February of 2016. Nitroglycerin made it a little bit better but still present. Not better worse with exertion position movement or deep breathing. Not associated with cough or fever or recent trauma. REVIEW OF SYSTEMS: Eye: no change in vision ENT: no sore throat Cardiac: HPI Pulmonary: no cough or SOB Abdomen: no vomiting, diarrhea, abdominal pain Musculoskeletal: HPI Skin: no rash Neuro: no headache Constitutional: no fever : no urinary symptoms A comprehensive 10 point review of systems is otherwise negative aside from elements mentioned in the history of present illness. PAST MEDICAL HISTORY: Cardiac stenting , neck and back fusions, appendectomy, , orthopedic surgery. Thyroidectomy. Social history: Here with spouse General Appearance: Alert and conversant, cooperative. Eyes: No scleral icterus. ENT, Mouth: Normal mucous membranes. Respiratory: Normal respiratory effort, breath sounds equal, lungs are clear to auscultation. Cardiovascular: Regular rate and rhythm. Gastrointestinal: Abdomen is soft and non tender. Neurological: Alert and oriented x3. Normally conversant. Face symmetric, normal movement and sensation in all extremities. Skin: Warm and dry, no rashes. Musculoskeletal: No peripheral edema and no joint swelling. Psychiatric: Not agitated. Emergency Department course/MDM: Oral aspirin, IV nitroglycerin, labs to include troponin, chest x-ray 1606: on IV ntg, feels better, troponin negative, given aspirin. admit [place] Smoking Status: Never smoked Constitutional: Initial Vital Signs Temperature (C) 36.4 C 07/27/17 14:37 Heart Rate 68 07/27/17 14:37 Respiratory Rate 16 07/27/17 14:37 Blood Pressure 152/72 H 07/27/17 14:37 O2 Sat (%) 98 07/27/17 14:37 O2 Delivery Mode Room Air Allergies/Adverse Reactions: ergot alkaloids [Ergot Alkaloids] Allergy (Severe, Verified 07/27/17 14:40) cant walk Penicillins Allergy (Severe, Verified 07/27/17 14:40) Rash cefaclor [From Ceclor] Allergy (Intermediate, Verified 07/27/17 14:40) bruising cyclobenzaprine HCl [From Flexeril] Allergy (Mild, Verified 07/27/17 14:40) rash, swelling metoclopramide HCl [From Reglan] Allergy (Mild, Verified 07/27/17 14:40) anxiety attacks plastic tape Allergy (Intermediate, Uncoded 02/09/17 23:12) Home Medications: Medication Instructions Recorded [place]-3 Fatty Acids [Fish Oil 1000 2,000 mg PO DAILY 01/29/17 mg (*)] metFORMIN HCL [Metformin HCl] 500 mg PO BIDMEAL 01/29/17 Aspirin EC [Aspirin EC 81 mg (*)] 81 mg PO DAILY #0 tab 02/09/17 Atorvastatin Calcium [Lipitor 20 20 mg PO DAILY #0 tab 02/09/17 mg (*)] Famotidine [Pepcid 20 MG (*)] 20 mg PO DAILY #0 tab 02/09/17 Lisinopril [Zestril 10 mg (*)] 10 mg PO DAILY #0 tab 02/09/17 Metoprolol Tartrate [Lopressor 25 25 mg PO BID #0 tab 02/09/17 mg (*)] Nitroglycerin [Nitrostat 0.4 mg 0.4 mg SL AD PRN #0 btl 02/09/17 (*)] Acetaminophen [Tylenol ES 500 mg 500 - 1,000 mg PO Q6HRS PRN #0 tab 02/10/17 (*)] Carisoprodol [Soma (*)] 350 mg PO TIDMEAL #60 tab 02/10/17 Cholecalciferol Vit D3 [Vitamin D3 1,000 units PO DAILY 02/10/17 (*)] Docusate Sodium [Colace 100 MG (*)] 100 mg PO BID 02/10/17 Medical Decision Making - Diagnostics EKG Interpretation: 12-lead EKG interpreted by me; official reading is in trace master. My interpretation is sinus rhythm with left atrial abnormality, nonspecific T-wave flattening rate 66. Imaging Results: Imaging Impressions Chest X-Ray 07/27/17 14:56 Impression: No evidence of acute cardiopulmonary abnormality. Differential Diagnosis: Differential diagnosis considered for chest pain including but not limited to myocardial ischemia, aortic dissection, pericarditis, pulmonary embolus, chest wall pain, pleural inflammation and pulmonary infectious causes. Consult/Admit Bed Type: [place] [id number] - Data Points Laboratory Results: Laboratory Results 07/27/17 14:58 07/27/17 14:58 07/27/17 07/27/17 14:58 14:58 WBC 11.01 10^3/uL H 10^3/uL (3.80-9.50) RBC 5.01 10^6/uL 10^6/uL (4.18-5.33) Hgb 14.7 g/dL g/dL (12.6-16.3) Hct 43.6 % % (38.0-47.0) MCV 87.0 fL fL (81.5-99.8) MCH 29.3 pg pg (27.9-34.1) MCHC 33.7 g/dL g/dL (32.4-36.7) RDW 14.5 % % (11.5-15.2) Plt Count 245 10^3/uL 10^3/uL (150-400) MPV 11.2 fL fL (8.7-11.7) Neut % (Auto) Not Reported Lymph % (Auto) Not Reported [place] % (Auto) Not Reported Eos % (Auto) Not Reported Baso % (Auto) Not Reported Nucleat RBC Rel Count 0.0 % % (0.0-0.2) Absolute Neuts (auto) Not Reported Absolute Lymphs (auto) Not Reported Absolute Monos (auto) Not Reported Absolute Eos (auto) Not Reported Absolute Basos (auto) Not Reported Absolute Nucleated RBC 0.00 10^3/uL 10^3/uL (0-0.01) Immature Gran % Not Reported Immature Gran # Not Reported Platelet Estimate Pending Sodium 143 mEq/L mEq/L (134-144) Potassium 4.3 mEq/L mEq/L (3.5-5.2) Chloride 104 mEq/L mEq/L (97-110) Carbon Dioxide 23 mEq/l mEq/l (22-31) Anion Gap 16 mEq/L mEq/L (8-16) BUN 18 mg/dL mg/dL (7-23) Creatinine 0.7 mg/dL mg/dL (0.6-1.0) Estimated GFR > 60 Glucose 102 mg/dL H mg/dL (70-100) Calcium 10.0 mg/dL mg/dL (8.5-10.4) Troponin I < 0.012 ng/mL ng/mL (0.000-0.034) Medications Given: Discontinued Medications Aspirin (Aspirin) 324 mg PO EDNOW ONE Stop: 07/27/17 14:57 Last Admin: 07/27/17 15:07 Dose: 324 mg Nitroglycerin/Dextrose (Nitroglycerin 200 Mcg/Ml (Premix)) 250 mls @ 0 mls/hr IV CONT ONE; Titrate PRN Reason: Protocol Stop: 07/27/17 14:57 Last Admin: 07/27/17 15:08 Dose: 250 mls Departure - Departure Disposition: [facility] Inpatient Acute Clinical Impression: Chest pain Condition: Good Referrals: Dorian Brar MD [Primary Care Provider] - As per Instructions
[2017-07-27 15:36] LABS: ADD MORPH? NO; ATYPICAL LYMPHOCYTE FLAG 0 (0-99); FRAGMENT RBC FLAG 0 (0-99); HEMATOCRIT 43.6 % (38.0-47.0); HEMOGLOBIN 14.7 g/dL (12.6-16.3); LEFT SHIFT FLG 10 (0-99); LIPEMIA HEMOLYSIS FLAG 80 (0-99); MEAN CELL HEMOGLOBIN 29.3 pg (27.9-34.1); MEAN CELL HEMOGLOBIN CONCENTR. 33.7 g/dL (32.4-36.7); MEAN PLATELET VOLUME 11.2 fL (8.7-11.7); PLATELET COUNT 245 10^3/uL (150-400); RED BLOOD CELL COUNT 5.01 10^6/uL (4.18-5.33); RED CELL DISTRIBUTION WIDTH 14.5 % (11.5-15.2)
[2017-07-27 15:40] LABS: PLATELET CLUMPS FLAG 170 (0-99)
[2017-07-27 15:41] LABS: ADD DIFF? YES; ADD SCAN? NO
[2017-07-27 15:53] LABS: ANION GAP 16 mEq/L (8-16); CARBON DIOXIDE 23 mEq/l (22-31); CHLORIDE 104 mEq/L (97-110); CREATININE 0.7 mg/dL (0.6-1.0); GLOMERULAR FILTRATION RATE > 60; GLUCOSE 102 mg/dL (70-100); POTASSIUM 4.3 mEq/L (3.5-5.2); SODIUM 143 mEq/L (134-144)
[2017-07-27 16:05] LABS: TROPONIN I < 0.012 ng/mL (0.000-0.034)
[2017-07-27] MEDS ORDERED: ONDANSETRON DISINTEGRATING 4 MG TAB PO PRN (16:21)
[2017-07-27] MEDS ORDERED: ACETAMINOPHEN 325 MG TAB PO PRN (16:21)
[2017-07-27] MEDS ORDERED: ONDANSETRON 4 MG/2 ML VIAL IVP PRN (16:21)
[2017-07-27] MEDS ORDERED: NITROGLYCERIN 0.4 MG BTL SL PRN (16:22)
[2017-07-27 16:27] LABS: PLATELET ESTIMATE ADEQUATE (ADEQ)
[2017-07-27] MEDS ORDERED: CARISOPRODOL 350 MG TAB PO PRN (16:43)
--- NOTE | 2017-07-27 17:41 | GHP ---
[f rep st] HISTORY AND PHYSICAL DATE OF ADMISSION: 07/27/2017 CHIEF COMPLAINT: Upper back pain, concern for anginal equivalent. PRIMARY MANAGER DATA: Dr. Morales. HISTORY OF PRESENT ILLNESS: A 62-year-old female with history of coronary artery disease, status post stent to LAD in 2011, by Dr. Burk, who presents with upper back pain. She says she awoke with this pain between 6 a.m. and 8 a.m. It feels like a very strong pressure. Some of the pain radiates up to the middle of her neck. No associated numbness, shortness of breath, diaphoresis, or nausea, vomiting. The pain has lasted up until she reached the ED. Pain improved to a 3 with sublingual nitroglycerin x2, but did not go away. She did note that she felt more wobbly when walking down the stairs today. Her legs were more achy. No fevers, chills, or sweats. No cough. No PND or lower extremity edema. Her last cardiac catheterization was February 2016, by Dr. Herrera, that showed no flow-limiting coronary disease and a patent LAD stent. She does not exercise. She does climb approximately 20 stairs at home without chest pain or shortness of breath. REVIEW OF SYSTEMS: I completed a 10-point review of systems, negative except as noted in HPI. PAST MEDICAL HISTORY: 1. Coronary artery disease, LAD stent in 2011. 2. Repeat catheterization February 2016. No flow-limiting stenosis, patent LAD stent. 3. Diabetes, hypertension, chronic neck and back pain. 4. History of nontoxic goiter. PAST SURGICAL HISTORY: 1. Thyroid lobectomy. 2. Kyphoplasties. 3. Right knee arthroscopic, bilateral ankle arthroscopic procedures. 4. Tonsillectomy. 5. Appendectomy. 6. Hernia repair. 7. Left ureteral stone removal. FAMILY HISTORY: Mother with MA. Father with 12 stents, now pacemaker. ALLERGIES: Ergot, alkaloids, penicillins, Ceclor, Flexeril, Reglan, methocarbamol, plastic tape. HOME MEDICATIONS: Metformin 500 mg b.i.d., nitroglycerin p.r.n., metoprolol 25 mg b.i.d., fish oil 2000 mg daily, lisinopril 10 daily, famotidine, vitamin D3, Soma 300 mg p.o. t.i.d. with meals, atorvastatin 20 mg, aspirin 81 mg daily, Tylenol p.r.n. PHYSICAL EXAMINATION: VITAL SIGNS: Temperature blood pressure 128/64, temperature 36.4, heart rate 60s, respirations 16, 94% on room air. GENERAL: Obese female, sitting up in bed, no acute distress. HEENT: PERRLA. EOMI. Oropharynx clear. CV: Regular rate and rhythm. No murmurs, gallops, or rubs. No JVD. No lower extremity edema. LUNGS: Clear. No crackles or wheezing. ABDOMEN: Soft, nontender, nondistended. Positive bowel sounds. : No suprapubic tenderness. MUSCULOSKELETAL: 5/5 upper and lower extremity strength. NEUROLOGIC: 2 through 12 intact. PSYCHIATRIC: Flat. Alert and oriented x3. LABORATORY DATA: WBC is 11, hemoglobin 14, hematocrit 43, platelets 245. Sodium 143, potassium 4.4, chloride 104, carbon dioxide 23, creatinine 0.7, glucose 102, calcium 10. Troponin less than 0.012. Chest x-ray, personally reviewed by me, no effusion or opacity. EKG, personally reviewed by me, normal sinus rhythm, mild ST-flattening anterior leads. T-wave inversion in lead I. ASSESSMENT/PLAN: 1. Acute upper back pain, concern for possible anginal equivalent: This is similar symptom when needed stenting in past. Initial trop and EKG without ischemia. Last cardiac catheterization was in February 2016, showing patent left anterior descending stent, 30% proximal lesion, and right coronary artery with an ejection fraction of 65%. We will monitor in the PCU on telemetry, repeat troponin, EKG. I spoke with Dr. Leavitt who will have her primary Temporary Help Agency Referral Clerk , Dr. Morales, to see in morning. P.r.n. SL nitro and morphine. 2. Diabetes. Resume metformin. 3. Hypertension. Resume lisinopril and metoprolol. 4. Coronary artery disease. Continue beta jocelynn, statin, and aspirin. 5. Chronic pain. Resume home medications. 6. Diet: Cardiac, diabetic. NPO in case of cardiac stress in morning 7. Deep venous thrombosis prophylaxis with Lovenox. DISPOSITION: Patient warrants observation admission given acute upper back pain , concerning for possible anginal equivalent, warranting cardiac, telemetry, and serial lab testing. /[id number]/MODL MTDD
[2017-07-27] MEDS ORDERED: metFORMIN HCL 500 MG TAB PO SCH (18:00)
[2017-07-27] MEDS: METOPROLOL TARTRATE 25 MG TAB PO SCH (19:54)
[2017-07-28 04:31] VITALS: O2SAT 95
[2017-07-28 04:57] LABS: HEMOGLOBIN 13.1 g/dL (12.6-16.3); MEAN CELL HEMOGLOBIN 28.2 pg (27.9-34.1); MEAN CELL VOLUME 88.4 fL (81.5-99.8); RED BLOOD CELL COUNT 4.64 10^6/uL (4.18-5.33); RED CELL DISTRIBUTION WIDTH 14.5 % (11.5-15.2)
[2017-07-28 05:29] LABS: ANION GAP 11 mEq/L (8-16); CALCIUM 9.5 mg/dL (8.5-10.4); CARBON DIOXIDE 25 mEq/l (22-31); CHLORIDE 105 mEq/L (97-110); CREATININE 0.7 mg/dL (0.6-1.0); GLOMERULAR FILTRATION RATE > 60; GLUCOSE 101 mg/dL (70-100); POTASSIUM 4.7 mEq/L (3.5-5.2); SODIUM 141 mEq/L (134-144)
[2017-07-28] MEDS: METOPROLOL TARTRATE 25 MG TAB PO SCH (07:58)
[2017-07-28 08:17] VITALS: BP 106/74; PULSE 65; RESP 10; TEMP 98
[2017-07-28] MEDS ORDERED: FAMOTIDINE 20 MG TAB PO SCH (09:00)
[2017-07-28] MEDS ORDERED: OMEGA-3 FATTY ACIDS 1,000 MG CAP PO SCH (09:00)
[2017-07-28] MEDS ORDERED: ENOXAPARIN 40 MG/0.4 ML SYR SC SCH (09:00)
[2017-07-28] MEDS ORDERED: LISINOPRIL 10 MG TAB PO SCH (09:00)
[2017-07-28] MEDS ORDERED: CHOLECALCIFEROL VIT D3 1,000 UNITS TAB PO SCH (09:00)
[2017-07-28] MEDS ORDERED: ASPIRIN EC 81 MG TAB PO SCH (09:00)
[2017-07-28] MEDS ORDERED: ATORVASTATIN CALCIUM 20 MG TAB PO SCH (09:00)
[2017-07-28] MEDS ORDERED: IOPAMIDOL (ISOVUE 370) 100 ML BTL IV ONE (09:29)
--- NOTE | 2017-07-28 09:53 | GCON ---
[f rep st] CONSULTATION CARDIOLOGY CONSULTATION DATE OF CONSULTATION: 07/28/2017 INDICATION FOR CONSULTATION: Midscapular discomfort. Requesting physician is Dr. Linda Krueger. HISTORY OF PRESENT ILLNESS: The patient is a pleasant 62-year-old female, well known to our cardiology practice, with a past medical history of coronary artery disease, with a history of PCI to the LAD in June 2004, coupled with a history of hypertension, hyperlipidemia, and diabetes, who was in her usual state of health until yesterday morning at around 6:00 a.m. when she awoke from bed with 8/10 severe midscapular, nonradiating pressure, with no other associated symptoms. She states the intensity of the discomfort waxed and waned. She took 2 sublingual nitroglycerin at home, which brought her discomfort from an 8/10 down to a 3/10. At that point, she had contacted the on -call costume specialist, who had recommended that she present to [facility] for further evaluation. While in the hospital, she received further nitroglycerin, which has resolved her discomfort. Currently at the time of my exam, she is generally feeling well. She states she may have some residual discomfort, but cannot tell if this is her midscapular pain or her underlying arthritic pain. Her EKG on admission demonstrated a normal sinus rhythm with normal intervals and a normal axis, with no evidence of ischemia or infarction. Troponins have been negative x2 to date. Telemetry demonstrates a normal sinus rhythm, with no arrhythmias. Prior to the onset of her chest discomfort at 6:00 a.m. yesterday morning, she had generally been feeling well. She was in her usual state of health. She denies any fevers, chills, sweats, nausea, or vomiting. No complaints of PND, orthopnea, or lower extremity edema. She denies any complaints of palpitations , dizziness, lightheadedness, near-syncope, or syncope. No complaints of exertional intolerance or fatigue. She does states she has noticed some mild increase in dyspnea with exertion with carrying her laundry hamper up a flight of steps. However, this activity is not associated with any chest or midscapular discomfort. In reviewing the patient's history, she has undergone repeat angiography in 2013 after presenting with similar midscapular discomfort. Angiogram in 2013 demonstrated a patent stent to the LAD and [id number] coronary artery disease in the remainder of her blood vessels. She also underwent repeat diagnostic left heart catheterization in February 2016 demonstrating a patent stent and nonobstructive coronary artery disease in the remainder of her vessels, and did not require any further intervention. Her most recent echocardiogram is from October 2015 demonstrating normal left ventricular function with an LVEF of 60% to 65%, with aortic sclerosis without stenosis or significant regurgitation. No other significant abnormalities on her echocardiogram. Lab work from October 2016 demonstrates well-controlled lipids, with an LDL of 29 , on atorvastatin 20 mg daily. PHYSICAL EXAMINATION: VITAL SIGNS: Blood pressure 106/74, heart rate 65 in sinus rhythm, oxygen saturation 95% on room air. GENERAL: She is awake, alert , oriented, appropriate, and in no apparent distress. NECK: There is no evidence of JVP or carotid bruits. LUNGS: Clear to auscultation bilaterally. CARDIAC: S1, S2. Regular rate and rhythm. No murmurs, rubs, or gallops. ABDOMEN: Soft, nontender. There is no evidence of cyanosis, clubbing, or edema. DATA: White blood cell count of 10.6, hemoglobin of 13.1, hematocrit of 41, platelet count of 251. Sodium 141, potassium 4.7, chloride 105, bicarb 19, BUN 19, creatinine 0.7, glucose 101, calcium 9.5. Troponins have been negative x2 of less than 0.012. ECG demonstrates a normal sinus rhythm, with normal intervals and a normal axis. IMPRESSION: 1. Midscapular pain. 2. Coronary artery disease. 3. Hypertension. 4. Hyperlipidemia. 5. History of mild bilateral carotid artery disease. SUMMARY: The patient is a pleasant 62-year-old female with a known history of coronary artery disease, with PCI to the LAD in June of 2004, with repeat angiograms in 2013 and most recently in February of 2016 demonstrating a patent LAD stent with no evidence of flow-limiting stenosis in the remainder of her vessels , who presents with the new onset of acute midscapular discomfort. In the setting of ongoing midscapular discomfort, would recommend the followin. Recommend CTA of the thoracic aorta to rule out evidence of aortic aneurysm in the descending thoracic aorta. 2. Exercise nuclear stress test. 3. Continue current medications. 4. We will continue to follow along with her care. 45 min spent cooridinating care. /[id number]/MODL MTDD
--- NOTE | 2017-07-28 11:35 | ASMTCMCOM ---
CM Note CM Note Notes: Patient admitted with chest pain, has history of CAD. Cardiology saw this AM and recommended CTA of thoracic aorta and exercise nuclear stress test. Patient lives independently with and will likely not have any discharge needs. CM available if any arise. Date Signed: 07/28/2017 11:34 AM Electronically Signed By:Jayleen Lora RN
--- NOTE | 2017-07-28 12:08 | GDS ---
[f rep st] DISCHARGE SUMMARY DIAGNOSES: 1. Coronary artery disease. Recent angiogram, 01/2016. No obstructing disease. 2. Hypertension. 3. Dyslipidemia. 4. History of mild bilateral carotid artery disease. CONSULTATIONS: Johnnie Morales MD. PROCEDURES DONE: CT angiogram of the chest. Note: Negative for any aortic aneurysm or pulmonary em boli. HOSPITAL COURSE: The patient is a 62-year-old with a history significant for coronary artery disease , status post stent placement, followed by Dr. Morales. She came in with some scapular pain, which was resolved with nitroglycerin. She was monitored overnight on telemetry without significant arrhythmia s, and troponins were negative. Dr. Morales saw her in the morning and did a CT angiogram to rule out a ortic dissection, which was negative. Since her EKG was unchanged and her troponins were negative, i t was felt safe to send her home with a followup stress test tomorrow morning. She is agreeable to t his plan. CONDITION ON DISCHARGE: Good. Vital signs are stable. She is alert and oriented. DISCHARGE MEDICATIONS: Please see discharge medication form. Of note, she needs to hold her beta bl ocker tonight and tomorrow morning before the stress test and hold her metformin for 48 hours. /[id number]/MODL
--- NOTE | 2017-07-28 15:41 | ASDISCHSUM ---
Discharge Information Plan Status:Home with No Needs Medically Cleared to Leave:07/27/2017 Discharge Date:07/28/2017 12:40 PM CM D/C Disposition:Home, Routine, Self-Care ADT D/C Disposition:Home, Routine, Self-Care Projected Discharge Date:07/28/2017 12:00 AM Transportation at D/C:Family Discharge Delay Reason: Follow-Up Date:07/28/2017 12:00 AM Discharge Slot: Final Diagnosis:CP Placement Information Patient Contact Information Contact Name:JOANNE Relationship:Other Address: Work Phone: Renuka:KAYLEIGH Chamberlain Phone: [facility]/Zip Code:[place] Email: Financial Information Financial Class:HMO and PPO Plans Primary Plan Desc:[employer] Primary Plan Number:[id number] Secondary Plan Desc: Secondary Plan Number: Assessment Information [facility] CM Progress Note CM Note CM Note Notes: Patient admitted with chest pain, has history of CAD. Cardiology saw this AM and recommended CTA of thoracic aorta and exercise nuclear stress test. Patient lives independently with and will likely not have any discharge needs. CM available if any arise. Date Signed: 07/28/2017 11:34 AM Electronically Signed By:Jayleen Lora RN Case Management Discharge Plan Note Case Management Discharge Discharge Order Complete? Answers: Yes Patient to Obtain Answers: via Family Medications Transportation Arranged Answers: Family/Friends Transport will Pick (Date 07/28/2017 12:00 AM & Time) Family Notified Answers: Yes Notes: Family to transport Discharge Comments Notes: Patient had a Nuclear stress test, symptoms resolved, discharged home Date Signed: 07/28/2017 03:40 PM Electronically Signed By:Lucita Gutierrez LCSW Intervention Information
== END 2017-07-28 12:40 | disposition home or self-care (01) ==
LOC: F2W 17:35
PROVIDERS: ADMIT Internal Medicine; ATTEND Internal Medicine
DX: I25.119 Atherosclerotic heart disease of native coronary artery with unspecified angina pectoris (principal); I10 Essential (primary) hypertension; E11.9 Type 2 diabetes mellitus without complications; E78.5 Hyperlipidemia, unspecified; Z95.5 Presence of coronary angioplasty implant and graft; Z82.49 Family history of ischemic heart disease and other diseases of the circulatory system; Z79.84 Long term (current) use of oral hypoglycemic drugs
CPT/HCPCS: 71020; 71275; 93005; G0378; 96365; J1650; Q9967

== ENCOUNTER → 2017-10-30 | Outpatient (CLI) | payer OTHER | LOC: CIMAGING 17:18 | PROVIDERS: ATTEND Internal Medicine Cardiovascular Disease | DX: Z13.6 Encounter for screening for cardiovascular disorders (principal) | CPT/HCPCS: 93880-PO ==

== ENCOUNTER → 2018-08-27 | Outpatient (CLI) | payer OTHER | END | disposition home or self-care (01) | LOC: FIMAGING 11:42 | PROVIDERS: ATTEND Physician Assistant | DX: J40 Bronchitis, not specified as acute or chronic (principal); M40.204 Unspecified kyphosis, thoracic region; M47.9 Spondylosis, unspecified ==

== ENCOUNTER 2018-10-23 17:38 | Observation (INO) | payer OTHER ==
--- NOTE | 2018-10-23 17:58 | EDPHY ---
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 When she developed a left-sided headache and felt like it hurt to touch her forehead. She then realized that she was talking to her co-worker but was not making any sense. She was wear that she knew what she wanted to say but could actually make the words come out correctly. This lasted until about 3:00 p.m. And now it is mostly resolved. She still has a very mild headache. She did not have dizziness or vertigo or trouble with motor or sensory in extremities. No double vision. No injury or head trauma recently. REVIEW OF SYSTEMS: Eye: no change in vision ENT: no sore throat Cardiac: no chest pain or syncope Pulmonary: no cough or SOB Abdomen: no vomiting, diarrhea, abdominal pain Musculoskeletal: Some upper back pain early which is like her usual spinal stenosis symptoms and also could be like her usual angina. Not present now. Skin: no rash Neuro: HPI Constitutional: no fever : no urinary symptoms A comprehensive 10 point review of systems is otherwise negative aside from elements mentioned in the history of present illness. PAST MEDICAL HISTORY: Includes cardiac stent in 2012, back and cervical spine fusions, appendectomy, , diabetes Social history: Here with General Appearance: Alert and conversant, cooperative. Eyes: No scleral icterus. ENT, Mouth: Normal mucous membranes. Respiratory: Normal respiratory effort, breath sounds equal, lungs are clear to auscultation. Cardiovascular: Regular rate and rhythm. Gastrointestinal: Abdomen is soft and non tender. Neurological: Alert, face symmetric, normal motor and sensory in extremities. Normal [id number] bilaterally, no pronator drift. Speech is fluent now although I heard her hesitate on 1 word. She can lift each leg independently off the bed. No clonus. Skin: Warm and dry, no rashes. Musculoskeletal: No peripheral edema. Psychiatric: Not agitated. Emergency Department course/MDM: Patient presents with resolution of symptoms, approximately 5 hr after time of onset when I evaluate her. She is not a stroke alert candidate because of symptom resolution. EKG shows sinus rhythm. CT and CT angio discussed and consented. 1944: Cam head normal, CTA shows proximal left vertebral stenosis but otherwise negative. Results discussed, admit for TIA workup. Smoking Status: Never smoked Constitutional: Initial Vital Signs Temperature (C) 36.6 C 10/23/18 17:52 Heart Rate 67 10/23/18 17:52 Respiratory Rate 16 10/23/18 17:52 Blood Pressure 161/86 H 10/23/18 17:52 O2 Sat (%) 98 10/23/18 17:52 O2 Delivery Mode Room Air Allergies/Adverse Reactions: ergot alkaloids [Ergot Alkaloids] Allergy (Severe, Verified 10/23/18 17:51) cant walk Penicillins Allergy (Severe, Verified 10/23/18 17:51) Rash cefaclor [From Ceclor] Allergy (Intermediate, Verified 10/23/18 17:51) bruising cyclobenzaprine HCl [From Flexeril] Allergy (Mild, Verified 10/23/18 17:51) rash, swelling metoclopramide HCl [From Reglan] Allergy (Mild, Verified 10/23/18 17:51) anxiety attacks methocarbamol [From Robaxin] Allergy (Verified 10/23/18 17:51) Other-Enter Comments plastic tape Allergy (Intermediate, Uncoded 10/23/18 17:51) Other-Enter Comments Home Medications: Medication Instructions Recorded Hopkins-3 Fatty Acids [Fish Oil 1000 2,000 mg PO DAILY 01/29/17 mg (*)] metFORMIN HCL [Metformin HCl] 500 mg PO BIDMEAL 01/29/17 Aspirin EC [Aspirin EC 81 mg (*)] 81 mg PO DAILY #0 tab 02/09/17 Atorvastatin Calcium [Lipitor 20 20 mg PO DAILY #0 tab 02/09/17 mg (*)] Famotidine [Pepcid 20 MG (*)] 20 mg PO DAILY #0 tab 02/09/17 Lisinopril [Zestril 10 mg (*)] 10 mg PO DAILY #0 tab 02/09/17 Metoprolol Tartrate [Lopressor 25 25 mg PO BID #0 tab 02/09/17 mg (*)] Nitroglycerin [Nitrostat 0.4 mg 0.4 mg SL AD PRN #0 btl 02/09/17 (*)] Acetaminophen [Tylenol ES 500 mg 500 - 1,000 mg PO Q6HRS PRN #0 tab 06/18/17 (*)] Cholecalciferol Vit D3 [Vitamin D3 1,000 units PO DAILY 02/10/17 (*)] Carisoprodol [Soma (*)] 350 mg PO TIDMEAL PRN 07/27/17 Medical Decision Making - Diagnostics EKG Interpretation: 12-lead EKG interpreted by me; official reading is in computer system. My interpretation is sinus rhythm rate 65 no ischemic changes no atrial fibrillation. Imaging Results: Imaging Impressions Head CT 10/23/18 18:24 Impression: There is no acute intracranial abnormality identified on this unenhanced CT evaluation. If there is further clinical concern regarding the patient's symptoms, MR imaging is suggested, if not otherwise contraindicated. A call was initially made to provide preliminary results to Dr. Dominick Delaney at 18: 47, on 10/23/2018. A CTA of the head and neck had also been requested, and was separately performed and subsequently reported. Final results were finally reported at 7:46 PM. on 10/23/2018. Head CTA 10/23/18 18:24 Impression: 1. There is no hemodynamically significant ICA stenosis. 2. There appears to be a high-grade stenosis of the proximal left vertebral artery, however the vessel is widely patent beyond this point. It is also a more dominant of the 2 vertebral arteries. 3. LAD coronary artery atherosclerotic calcific plaque. CT ANGIOGRAPHY OF THE BRAIN: The major vessels of the [place] are well visualized, and there is no aneurysm, vascular malformation, flow-limiting stenosis, or acute occlusion identified. The distal cervical, petrous, cavernous , and supraclinoid portions of the internal carotid arteries are patent (there is some atherosclerotic calcific plaque associated with the cavernous portions of the internal carotid arteries, right greater than left). The A1 and A2 segments are patent as are the M1, M2, and M3 trifurcation vessels. With regards to the posterior circulation, the distal vertebral arteries are patent. The posterior inferior cerebellar arteries, vertebrobasilar confluence, anterior inferior cerebellar arteries, basilar artery, superior cerebellar arteries, and the posterior cerebral arteries are patent. The posterior communicating arteries are atretic. The dural venous sinuses appear patent. The right transverse dural venous sinus is congenitally larger than the left, a normal variant. Impression: Negative CT angiogram of the brain. CT Source Data: There are some mild dependent and hypoventilatory changes associated with the lung apices. The visualized superior mediastinal structures are normal. The patient has had a left thyroidectomy. The right lobe of the thyroid gland is unremarkable. The patient has also had anterior cervical diskectomy and fusion at the C5-C6 and C6-C7 levels. There is advanced degenerative disk space narrowing at C4-C5 with ventral traction osteophytes. There is trace degenerative anterolisthesis at C7-T1. There are multilevel uncovertebral degenerative osteophytes present. Measurement of carotid stenosis is based on the residual internal carotid diameter with [place] Symptomatic Carotid Endarterectomy Trial (NASCET) based stenosis levels. Findings were called to Dominick Delaney M.D. at 19:28, and then discussed at 7:46 PM , on 10/23/2018. Neck CTA 10/23/18 18:24 Impression: 1. There is no hemodynamically significant ICA stenosis. 2. There appears to be a high-grade stenosis of the proximal left vertebral artery, however the vessel is widely patent beyond this point. It is also a more dominant of the 2 vertebral arteries. 3. LAD coronary artery atherosclerotic calcific plaque. CT ANGIOGRAPHY OF THE BRAIN: The major vessels of the [place] are well visualized, and there is no aneurysm, vascular malformation, flow-limiting stenosis, or acute occlusion identified. The distal cervical, petrous, cavernous , and supraclinoid portions of the internal carotid arteries are patent (there is some atherosclerotic calcific plaque associated with the cavernous portions of the internal carotid arteries, right greater than left). The A1 and A2 segments are patent as are the M1, M2, and M3 trifurcation vessels. With regards to the posterior circulation, the distal vertebral arteries are patent. The posterior inferior cerebellar arteries, vertebrobasilar confluence, anterior inferior cerebellar arteries, basilar artery, superior cerebellar arteries, and the posterior cerebral arteries are patent. The posterior communicating arteries are atretic. The dural venous sinuses appear patent. The right transverse dural venous sinus is congenitally larger than the left, a normal variant. Impression: Negative CT angiogram of the brain. CT Source Data: There are some mild dependent and hypoventilatory changes associated with the lung apices. The visualized superior mediastinal structures are normal. The patient has had a left thyroidectomy. The right lobe of the thyroid gland is unremarkable. The patient has also had anterior cervical diskectomy and fusion at the C5-C6 and C6-C7 levels. There is advanced degenerative disk space narrowing at C4-C5 with ventral traction osteophytes. There is trace degenerative anterolisthesis at C7-T1. There are multilevel uncovertebral degenerative osteophytes present. Measurement of carotid stenosis is based on the residual internal carotid diameter with [place] Symptomatic Carotid Endarterectomy Trial (NASCET) based stenosis levels. Findings were called to Dominick Delaney M.D. at 19:28, and then discussed at 7:46 PM , on 10/23/2018. Consult/Admit Bed Type: [place] [id number] - Data Points Laboratory Results: Laboratory Results 10/23/18 18:03 10/23/18 18:03 10/23/18 10/23/18 10/23/18 18:16 18:16 18:03 WBC RBC Hgb POC Hgb 15.6 gm/dL gm/dL (12.6-16.3) Hct POC Hct 46 % % (38-47) MCV MCH MCHC RDW Plt Count MPV Neut % (Auto) Lymph % (Auto) Arthur % (Auto) Eos % (Auto) Baso % (Auto) Nucleat RBC Rel Count Absolute Neuts (auto) Absolute Lymphs (auto) Absolute Monos (auto) Absolute Eos (auto) Absolute Basos (auto) Absolute Nucleated RBC Immature Gran % Immature Gran # PT INR APTT POC Sodium 142 mEq/L mEq/L (135-145) Sodium 139 mEq/L mEq/L (135-145) POC Potassium 3.7 mEq/L mEq/L (3.3-5.0) Potassium 4.1 mEq/L mEq/L (3.5-5.2) POC Chloride 105 mEq/L mEq/L (97-110) Chloride 103 mEq/L mEq/L (97-110) Carbon Dioxide 25 mEq/l mEq/l (22-31) POC Total CO2 25 mEq/L mEq/L (22-31) Anion Gap 11 mEq/L mEq/L (6-14) POC BUN 20 mg/dL mg/dL (7-23) BUN 21 mg/dL mg/dL (7-23) Creatinine 0.7 mg/dL mg/dL (0.6-1.0) POC Creatinine 0.6 mg/dL mg/dL (0.6-1.0) Estimated GFR > 60 Glucose 109 mg/dL H mg/dL (70-100) POC Glucose 113 mg/dL H mg/dL (70-100) Calcium 10.0 mg/dL mg/dL (8.5-10.4) POC Troponin I 0.01 ng/mL ng/mL (0.00-0.08) 10/23/18 10/23/18 18:03 18:03 WBC 9.51 10^3/uL H 10^3/uL (3.80-9.50) RBC 5.01 10^6/uL 10^6/uL (4.18-5.33) Hgb 14.5 g/dL g/dL (12.6-16.3) POC Hgb Hct 44.1 % % (38.0-47.0) POC Hct MCV 88.0 fL fL (81.5-99.8) MCH 28.9 pg pg (27.9-34.1) MCHC 32.9 g/dL g/dL (32.4-36.7) RDW 14.2 % % (11.5-15.2) Plt Count 295 10^3/uL 10^3/uL (150-400) MPV 9.9 fL fL (8.7-11.7) Neut % (Auto) 52.4 % % (39.3-74.2) Lymph % (Auto) 38.1 % % (15.0-45.0) Arthur % (Auto) 7.6 % % (4.5-13.0) Eos % (Auto) 1.3 % % (0.6-7.6) Baso % (Auto) 0.3 % % (0.3-1.7) Nucleat RBC Rel Count 0.0 % % (0.0-0.2) Absolute Neuts (auto) 4.99 10^3/uL 10^3/uL (1.70-6.50) Absolute Lymphs (auto) 3.62 10^3/uL H 10^3/uL (1.00-3.00) Absolute Monos (auto) 0.72 10^3/uL 10^3/uL (0.30-0.80) Absolute Eos (auto) 0.12 10^3/uL 10^3/uL (0.03-0.40) Absolute Basos (auto) 0.03 10^3/uL 10^3/uL (0.02-0.10) Absolute Nucleated RBC 0.00 10^3/uL 10^3/uL (0-0.01) Immature Gran % 0.3 % % (0.0-1.1) Immature Gran # 0.03 10^3/uL 10^3/uL (0.00-0.10) PT 12.8 SEC SEC (12.0-15.0) INR 0.94 (0.83-1.16) APTT 30.3 SEC SEC (23.0-38.0) POC Sodium Sodium POC Potassium Potassium POC Chloride Chloride Carbon Dioxide POC Total CO2 Anion Gap POC BUN BUN Creatinine POC Creatinine Estimated GFR Glucose POC Glucose Calcium POC Troponin I Point of Care Test Results: Chemistry 10/23/18 10/23/18 18:16 18:16 POC Sodium 142 mEq/L mEq/L (135-145) POC Potassium 3.7 mEq/L mEq/L (3.3-5.0) POC Chloride 105 mEq/L mEq/L (97-110) POC Total CO2 25 mEq/L mEq/L (22-31) POC BUN 20 mg/dL mg/dL (7-23) POC Creatinine 0.6 mg/dL mg/dL (0.6-1.0) POC Glucose 113 mg/dL H mg/dL (70-100) POC Troponin I 0.01 ng/mL ng/mL (0.00-0.08) ISTAT H&H 10/23/18 18:16 POC Hgb 15.6 gm/dL gm/dL (12.6-16.3) POC Hct 46 % % (38-47) Departure - Departure Disposition: [facility] Inpatient Acute Clinical Impression: Transient cerebral ischemia Qualifiers: Transient cerebral ischemia type: unspecified Qualified Code(s): G45.9 - Transient cerebral ischemic attack, unspecified Condition: Good
--- NOTE | 2018-10-23 18:22 | CPEKG ---
Test Reason : OPEN Blood Pressure : / mmHG Vent. Rate : 065 BPM Atrial Rate : 065 BPM P-R Int : 164 ms QRS Dur : 089 ms QT Int : 417 ms P-R-T Axes : 037 020 004 degrees QTc Int : 434 ms Sinus rhythm Confirmed by Anitha Iverson ([id number]) on 10/23/2018 6:22:02 PM Referred By: ANITHA IVERSON Confirmed By:Anitha Iverson
[2018-10-23] MEDS ORDERED: IOPAMIDOL (ISOVUE 370) 100 ML BTL IV ONE (18:29)
[2018-10-23 18:33] LABS: PLATELET COUNT 295 10^3/uL (150-400)
[2018-10-23 18:42] LABS: INR 0.94 (0.83-1.16); PROTIME(PATIENT) 12.8 SEC (12.0-15.0)
[2018-10-23] MEDS ORDERED: ACETAMINOPHEN 325 MG TAB PO ONE (19:56)
[2018-10-23] MEDS ORDERED: ALBUTEROL 60 PUFFS/8 GM MDI IH PRN (20:43)
[2018-10-23] MEDS ORDERED: D50W 25 GM/50 ML VIAL IVP PRN (20:44)
--- NOTE | 2018-10-23 20:45 | PDGENHP ---
History and Physical - Chief Complaint trouble speaking - History of Present Illness 63yo F with history of CAD s/p stent, HTN, diabetes presents after acute onset difficulty speaking. She was driving to a meeting with a friend when symptoms started. She knew what she wanted to say but couldn't find the words. This started approximately 1pm this afternoon. She developed a severe headache behind her left eye at this time. This was associated with some nausea and neck pain. She denies any extremity weakness or numbness. Her friend did not report any facial droop. She then went to the meeting and actually lead a discussion. Her word finding difficulty had essentially resolved. She then came to the ED for evaluation. In the ED a non-contrasted head CT was negative for acute stroke. CTA of head and neck was negative for thrombus. She is being admitted for further evaluation. Case discussed with ED physician Dominick Delaney. History Information - Allergies/Home Medication List Allergies/Adverse Reactions: ergot alkaloids [Ergot Alkaloids] Allergy (Severe, Verified 10/23/18 17:51) cant walk Penicillins Allergy (Severe, Verified 10/23/18 17:51) Rash cefaclor [From Ceclor] Allergy (Intermediate, Verified 10/23/18 17:51) bruising cyclobenzaprine HCl [From Flexeril] Allergy (Mild, Verified 10/23/18 17:51) rash, swelling metoclopramide HCl [From Reglan] Allergy (Mild, Verified 10/23/18 17:51) anxiety attacks methocarbamol [From Robaxin] Allergy (Verified 10/23/18 17:51) Other-Enter Comments plastic tape Allergy (Intermediate, Uncoded 10/23/18 17:51) Other-Enter Comments Home Medications: Hulen-3 Fatty Acids [Fish Oil 1000 mg (*)] 2,000 mg PO DAILY 01/29/17 [Last Taken 10/23/18] metFORMIN HCL [Metformin HCl] 500 mg PO BIDMEAL 01/29/17 [Last Taken 10/23/18 09 :00] Cholecalciferol Vit D3 [Vitamin D3 (*)] 1,000 units PO DAILY 02/10/17 [Last Taken 10/23/18] Carisoprodol [Soma (*)] 350 mg PO TIDMEAL PRN 07/27/17 [Last Taken Unknown] Albuterol Sulfate [Ventolin Hfa] 1 inh IH DAILY PRN 10/23/18 [Last Taken Unknown ] Lisinopril [Lisinopril] 10 mg PO DAILY 10/23/18 [Last Taken 10/23/18] I have personally reviewed and updated: family history, medical history, social history, surgical history - Past Medical History Additional medical history: CAD s/p PCI x 1 in 2009 (repeat cath 02/2016 with patent stent), DM2 on oral meds, Hypertension, Chronic radicular back pain, nontoxic goiter - Surgical History Additional surgical history: cervical and lumbar kyphoplasties, R knee arthroscopy, b/l ankle arthroscopies, tonsillectomy, appendectomy - Family History Additional family history: M/F: CAD/MIs - Social History Smoking Status: Never smoked Alcohol Use: None Drug Use: None Additional social history: Patient lives with her , independent. Review of Systems Review of Systems: ROS: 10pt was reviewed & negative except for what was stated in HPI & below Physical Exam Physical Exam: Temp Pulse Resp BP Pulse Ox 36.6 C 85 16 171/95 H 94 10/23/18 17:52 10/23/18 20:05 10/23/18 20:05 10/23/18 20:05 10/23/18 20:05 Constitutional: no apparent distress, appears nourished, not in pain Eyes: PERRL, anicteric sclera, EOMI Ears, Nose, Mouth, Throat: moist mucous membranes, hearing normal, ears appear normal, no oral mucosal ulcers Cardiovascular: regular rate and rhythym, no murmur, rub, or gallop, No edema Gastrointestinal: normoactive bowel sounds, soft, non-tender abdomen, no palpable masses Genitourinary: no bladder fullness, no bladder tenderness Skin: warm, normal color, no rashes or abrasions, no fluctuance, no induration, No mottled Musculoskeletal: full muscle strength, no muscle tenderness, normal joint ROM, no joint effusions Neurologic: AAOx3, sensation intact bilaterally, CN II-XII Intact, No weakness, No numbness, No pronator drift, No facial droop Psychiatric: interacting appropriately, not anxious, not encephalopathic, thought process linear Lab Data & Imaging Review 10/23/18 18:03 10/23/18 18:03 WBC 9.51 10^3/uL (3.80-9.50) H 10/23/18 18:03 RBC 5.01 10^6/uL (4.18-5.33) 10/23/18 18:03 Hgb 14.5 g/dL (12.6-16.3) 10/23/18 18:03 POC Hgb 15.6 gm/dL (12.6-16.3) 10/23/18 18:16 Hct 44.1 % (38.0-47.0) 10/23/18 18:03 POC Hct 46 % (38-47) 10/23/18 18:16 MCV 88.0 fL (81.5-99.8) 10/23/18 18:03 MCH 28.9 pg (27.9-34.1) 10/23/18 18:03 MCHC 32.9 g/dL (32.4-36.7) 10/23/18 18:03 RDW 14.2 % (11.5-15.2) 10/23/18 18:03 Plt Count 295 10^3/uL (150-400) 10/23/18 18:03 MPV 9.9 fL (8.7-11.7) 10/23/18 18:03 Neut % (Auto) 52.4 % (39.3-74.2) 10/23/18 18:03 Lymph % (Auto) 38.1 % (15.0-45.0) 10/23/18 18:03 Beaver % (Auto) 7.6 % (4.5-13.0) 10/23/18 18:03 Eos % (Auto) 1.3 % (0.6-7.6) 10/23/18 18:03 Baso % (Auto) 0.3 % (0.3-1.7) 10/23/18 18:03 Nucleat RBC Rel Count 0.0 % (0.0-0.2) 10/23/18 18:03 Absolute Neuts (auto) 4.99 10^3/uL (1.70-6.50) 10/23/18 18:03 Absolute Lymphs (auto) 3.62 10^3/uL (1.00-3.00) H 10/23/18 18:03 Absolute Monos (auto) 0.72 10^3/uL (0.30-0.80) 10/23/18 18:03 Absolute Eos (auto) 0.12 10^3/uL (0.03-0.40) 10/23/18 18:03 Absolute Basos (auto) 0.03 10^3/uL (0.02-0.10) 10/23/18 18:03 Absolute Nucleated RBC 0.00 10^3/uL (0-0.01) 10/23/18 18:03 Immature Gran % 0.3 % (0.0-1.1) 10/23/18 18:03 Immature Gran # 0.03 10^3/uL (0.00-0.10) 10/23/18 18:03 PT 12.8 SEC (12.0-15.0) 10/23/18 18:03 INR 0.94 (0.83-1.16) 10/23/18 18:03 APTT 30.3 SEC (23.0-38.0) 10/23/18 18:03 POC Sodium 142 mEq/L (135-145) 10/23/18 18:16 Sodium 139 mEq/L (135-145) 10/23/18 18:03 POC Potassium 3.7 mEq/L (3.3-5.0) 10/23/18 18:16 Potassium 4.1 mEq/L (3.5-5.2) 10/23/18 18:03 POC Chloride 105 mEq/L (97-110) 10/23/18 18:16 Chloride 103 mEq/L (97-110) 10/23/18 18:03 Carbon Dioxide 25 mEq/l (22-31) 10/23/18 18:03 POC Total CO2 25 mEq/L (22-31) 10/23/18 18:16 Anion Gap 11 mEq/L (6-14) 10/23/18 18:03 POC BUN 20 mg/dL (7-23) 10/23/18 18:16 BUN 21 mg/dL (7-23) 10/23/18 18:03 Creatinine 0.7 mg/dL (0.6-1.0) 10/23/18 18:03 POC Creatinine 0.6 mg/dL (0.6-1.0) 10/23/18 18:16 Estimated GFR > 60 10/23/18 18:03 Glucose 109 mg/dL (70-100) H 10/23/18 18:03 POC Glucose 113 mg/dL (70-100) H 10/23/18 18:16 Calcium 10.0 mg/dL (8.5-10.4) 10/23/18 18:03 POC Troponin I 0.01 ng/mL (0.00-0.08) 10/23/18 18:16 EKG additional interpertation: ECG: NSR, no acute ischemic changes Assessment & Plan Assessment: 63yo F with history of CAD s/p stent, HTN, diabetes presents after acute onset of expressive aphasia. Plan: #Acute expressive aphasia: Now resolved. Possibly TIA vs complication of migraine. Not TPA candidate as symptoms have resolved. 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 Not in vascular territory that should cause aphasia. #CAD: S/p LAD stent in the past. Continue aspirin, statin, BB. She reports being taken off plavix about a year ago. #HTN: BP initially very elevated, now normal without intervention. Continue home meds. #Diabetes: Holding metformin with contrast adminsitration. Place on SSI with regular BG checks. #Chronic neck pain: She is on soma, which I'll continue. VTE ppx: SCDs Code: full Diet: swallow eval, then carb controlled Dispo: Admit under observation
[2018-10-23] MEDS ORDERED: DIAZEPAM 5 MG/ML 1 ML SYR IVP ONE (21:00)
[2018-10-23] MEDS ORDERED: DIAZEPAM 5 MG/ML 1 ML SYR ONE (21:02)
[2018-10-23] MEDS ORDERED: GADOBUTROL 10 ML VIAL IVP ONE (21:17)
[2018-10-23] MEDS: METOPROLOL TARTRATE 25 MG TAB PO SCH (22:01)
[2018-10-23] MEDS: CARISOPRODOL 350 MG TAB PO PRN (22:01)
[2018-10-24] MEDS: ACETAMINOPHEN 500 MG TAB PO PRN ×2 (05:58→14:27)
[2018-10-24] MEDS: CARISOPRODOL 350 MG TAB PO PRN ×2 (06:01→14:27)
--- NOTE | 2018-10-24 07:53 | NEUROPROG ---
Assessment: Addendum to consultation just dictated should include the NIH stroke scale is 0. Objective: Vital Signs Temp Pulse Resp BP Pulse Ox 36.8 C 59 L 19 107/60 96 10/24/18 07:32 10/24/18 07:32 10/24/18 07:32 10/24/18 07:32 10/24/18 07:32 PT 12.8 SEC (12.0-15.0) 10/23/18 18:03 INR 0.94 (0.83-1.16) 10/23/18 18:03 Allergies/Adverse Reactions: ergot alkaloids [Ergot Alkaloids] Allergy (Severe, Verified 10/23/18 17:51) cant walk Penicillins Allergy (Severe, Verified 10/23/18 17:51) Rash cefaclor [From Ceclor] Allergy (Intermediate, Verified 10/23/18 17:51) bruising cyclobenzaprine HCl [From Flexeril] Allergy (Mild, Verified 10/23/18 17:51) rash, swelling metoclopramide HCl [From Reglan] Allergy (Mild, Verified 10/23/18 17:51) anxiety attacks methocarbamol [From Robaxin] Allergy (Verified 10/23/18 17:51) Other-Enter Comments plastic tape Allergy (Intermediate, Uncoded 10/23/18 17:51) Other-Enter Comments
[2018-10-24] MEDS: METOPROLOL TARTRATE 25 MG TAB PO SCH (08:44)
[2018-10-24] MEDS: INSULIN LISPRO 100 UNIT/ML SC SCH ×2 (08:45→12:15)
[2018-10-24] MEDS ORDERED: ATORVASTATIN CALCIUM 20 MG TAB PO SCH (09:00)
[2018-10-24] MEDS ORDERED: LISINOPRIL 10 MG TAB PO SCH (09:00)
[2018-10-24] MEDS ORDERED: CLOPIDOGREL BISULFATE 75 MG TAB PO SCH (09:00)
[2018-10-24] MEDS ORDERED: ASPIRIN EC 81 MG TAB PO SCH (09:00)
[2018-10-24] MEDS ORDERED: FAMOTIDINE 20 MG TAB PO SCH (09:00)
--- NOTE | 2018-10-24 12:00 | ECHO ---
[email or web address] [address] [address] Main: [phone] Fax: Transthoracic Echocardiogram Name: SREE MIKE MR#: [id number] Study Date: 10/24/2018 Study Time: 08:08 AM Date of : 1955 Age: 63 year(s) Height: 157.5 cm (62 in.) Weight: 81.65 kg (180 lb.) BSA: 1.83 m2 Gender: Female Examination: Echo with Agitated Saline Indication: Atrial Flutter Image Quality: Adequate Contrast: Requested by: Cheko Saunders BP: 107 mmHg/60 mmHg Heart Rate: Rhythm: Indication: Atrial Flutter Procedure Staff Instructional Aide: Linda Ramirez RDCS Reading Physician: Adriane Victor MD Requesting Provider: Conclusions: Normal size left ventricle. Mild concentric LV hypertrophy. Normal global systolic LV function. The ejection fraction is visually estimated to be 65 %. No regional wall motion abnormality. Normal diastolic LV function. Normal size right ventricle. Normal RV function. An agitated saline study was performed and was negative for intracardiac shunting. Mild mitral valve regurgitation is present. Mild aortic cusp calcification is noted. No aortic valve stenosis is present. Mild tricuspid regurgitation is present. Right ventricular systolic pressure measures 23mmHg. No pericardial effusion. Compared with 06/22/2012 mild tricuspid regurgitation now present. Measurements: Chambers Valvular Assessment AV/MV Valvular Assessment TV/PV Normal Normal Normal Name Value Range Name Value Range Name Value Range IVSd (2D): 1.2 cm (0.6 cm-1.1 AV Vmax: 1.51 m/s (1 m/s-1.7 TR Vmax: 2.14 mm/s ( - ) cm) m/s) TR PGmax: 18 mmHg ( - ) LVDd (2D): 4.1 cm (3.9 cm-5.3 AV maxP mmHg ( - ) syst. PAP: 23 mmHg ( - ) cm) AV meanP mmHg ( - ) PV Vmax: 0.86 m/s (0.6 m/s-0.9 LVDs (2D): 2.6 cm (2.1 cm-4 STORM (VTI): 2.5 cm ( - ) m/s) cm) MV E Vmax: 0.74 m/s ( - ) PV PGmax: 3 mmHg ( - ) LVPWd (2D): 1.2 cm ( - ) MV A Vmax: 0.95 m/s ( - ) LVOTd 2.0 cm 2.0 cm mm MV E/A: 0.78 ( - ) LVEF (BP): 71 % (>=55 %) MV PHT: 0.066 s ( - ) Patient: SREE MIKE Study Date: 10/24/2018 Page 1 of 2 08:08 AM Visual EF: 65 % MVA (PHT): 3.3 s ( - ) RVDd(2D): 3.2 cm (1.9 cm-3.8 cmmm) Continued Measurements: Chambers Valvular Assessment AV/MV Valvular Assessment TV/PV Name Value Name Value Name Value LADs: 4.2 cm MV DecTime: 222 m/s CVP (est.): 5 mmHg LADs Lon.4 cm MV E' Septal: 0.06 m/s LA Area: 18.0 cm2 MV E/E' Septal: 11.70 LA Volume: 51 ml MV E/E' Lateral: 10.70 LA Volume Index: 27.9 ml/m2 RA Area: 14.0 cm2 Additional Vessels Name Value Ao Ascendin.8 cm Findings: Left Ventricle: Normal size left ventricle. Mild concentric LV hypertrophy. Normal global systolic LV function. The ejection fraction is visually estimated to be 65 %. No regional wall motion abnormality. Normal diastolic LV function. Right Ventricle: Normal size right ventricle. Normal RV function. Left Atrium: The left atrium is normal in size. An agitated saline study was performed and was negative for intracardiac shunting. Right Atrium: The right atrium is normal in size. Mitral Valve: The mitral valve is normal in appearance and function. Mild mitral valve regurgitation is present. No mitral stenosis is present. Aortic Valve: The aortic valve is tri-leaflet. Mild aortic cusp calcification is noted. Trivial aortic valve regurgitation. No aortic valve stenosis is present. Tricuspid Valve: The tricuspid valve is normal in appearance and function. Mild tricuspid regurgitation is present. The pulmonary artery pressure is normal. Right ventricular systolic pressure measures 23mmHg. Pulmonic Valve: The pulmonic valve is normal in appearance and function. Trivial pulmonic valve regurgitation. Aorta: The aorta is normal. Normal size ascending aorta measuring 2.8 cm. IVC: The IVC is normal sized. Pericardium: No pericardial effusion. (No Signature Object) Patient: SREE MIKE Study Date: 10/24/2018 Page 2 of 2 08:08 AM [id number]
[2018-10-24 12:06] VITALS: BP 138/74
--- NOTE | 2018-10-24 12:45 | GCON ---
[f rep st] CONSULTATION NEUROLOGIC CONSULTATION REFERRING PHYSICIAN: Cheko Saunders MD HISTORY: The patient is a 63-year-old woman whom I am asked to see in neurologic consultation regard ing an episode of aphasia yesterday. She was doing well until 1 p.m. when she was riding in the car and had trouble with verbal expression. She knew what she wanted to say, but could not get her words out. The total duration was about 2 hours. This was associated with some neck pain, which is mostl y chronic from old cervical spine disease, as well as some pain in the left periorbital region. Most of the pain in the head is resolved, and she says she has some mild neck pain at this point. She di d not have weakness or numbness. She has never had this phenomenon before. Before pregnancies, she experienced quite frequent migraine with aura, but never anything like this, and she said this did no t seem like a migraine to her. She came to the hospital for acute evaluation and had CT head that wa s unremarkable, and CT angiogram of the head and neck did not reveal any acute occlusion, but there w as a high-grade stenosis of the left vertebral artery with large dilation distally. She subsequently had a brain MRI obtained and that confirmed that there was no evidence of an acute stroke. There wa s microvascular ischemic change. She has a history of coronary artery disease and was stented several years ago and was on dual anti-p latelet therapy with aspirin and Plavix, but about a year ago, was taken off Plavix, and has continue d on just daily aspirin since that time. She says she does reliably take her aspirin. She is also n ormally on a statin and continues that. She feels back to her baseline now, other than the mild discomfort of headache and neck pain. No oth er acute exacerbating or alleviating factors with this. No recent illness. REVIEW OF SYSTEMS: The 10-point review of systems is completed and unremarkable, except for that not ed above. PAST MEDICAL HISTORY: Notable for coronary disease with percutaneous intervention twice, stenting in 2016, type 2 diabetes, hypertension, chronic low back and neck pain, and history of cervical and lum bar kyphoplasties. FAMILY HISTORY: Coronary disease with myocardial infarction. SOCIAL HISTORY: She is . No smoking or alcohol or drug use. She lives with her . ALLERGIES: Ergots, penicillin, cefaclor, Flexeril, Reglan, Robaxin, and some plastic tape. HOME MEDICATION: Lisinopril, metformin, metoprolol, Pepcid, vitamin D, Soma, calcium, Tylenol, aspir in, and albuterol. She is currently on atorvastatin 20 mg daily and aspirin 81 mg daily, as well as her other home medications being continued. PHYSICAL EXAM: VITAL SIGNS: Blood pressure is 107/60, pulse of 59, respirations 19, temperature 36. 8. GENERAL: She is well developed, but overweight, in no acute distress. EYES: Clear. NECK: Sup ple with no bruits or masses. CARDIAC: Regular rate and rhythm. No murmur. NEUROLOGIC: She is aw carol, alert, and attentive. She is oriented to person, place, time and general situation. She has no rmal concentration and attention, as well as good general fund of knowledge. There is no language im pairment. Retention of recent and remote memory. Pupils are 3 mm and reactive. Extraocular movemen ts intact. Normal facial sensation and strength. Palate elevates symmetrically and tongue protrudes midline. No weakness of head turning or shoulder shrug. Hearing is intact. Motor exam reveals nor mal muscle bulk and tone with 5/5 strength and no abnormal movements. Reflexes are 1+ and symmetric. No ataxia on [id number]. Sensation is preserved for temperature and light touch. LABORATORY/IMAGING: Unremarkable CBC. Normal INR. Unremarkable basic chemistries. Her LDL cholest dion is 28. Diagnostic imaging studies are as outlined above with the CT, CT angiogram and brain MRI. IMPRESSION: The patient has multiple risk factors for transient ischemic attack and stroke. She has a history of coronary artery disease, as well as hypertension, diabetes, and hyperlipidemia. She wa s on aspirin when this occurred. I believe this episode was most likely transient ischemic attack an d far less likely a migraine equivalent phenomenon. The vascular distribution is consistent with ant erior circulation so I think the left vertebral artery stenosis is coincidental, but another marker o f vascular disease. Based on most recent data, I am recommending dual anti-platelet therapy for 21 d ays with Plavix 75 mg daily and aspirin 81 mg daily and then switching back to aspirin only 81 mg. S he is comfortable with this approach. She should follow up with me in the office in about a month. I gave her my card for further followup. Echocardiogram is pending. Unless that shows something une xpected, she should be able to be safely discharged today in my opinion. /[id number]/MODL
--- NOTE | 2018-10-24 16:31 | GDS ---
[f rep st] DISCHARGE SUMMARY DISCHARGE DIAGNOSIS: Transient ischemic attack. CONSULTATIONS: Ken Dudley MD. STUDIES AND PROCEDURES DONE: 1. CT of the head. 2. CT angiogram of the head and neck. 3. MRI of the brain. 4. Echocardiogram. PHYSICAL EXAM: GENERAL: The patient is alert. VITAL SIGNS: Afebrile at 36.8, pulse 70, respirator y rate 16, blood pressure 138/74, and she is saturating 94% on room air. I have seen and evaluated t he patient on the day of discharge. HOSPITAL COURSE: The patient is a 63-year-old female, who presented to the hospital with complaints of word-finding difficulty. She was evaluated and diagnosed with likely TIA. During this hospitaliz ation, she received a consultation from Dr. Dudley of Neurology. She did receive a CT angiogram o f the head and neck, as well as MRI of the brain and echocardiogram during this hospital course. She has a history of hypertension, diabetes, and hyperlipidemia. Given her increased risk, she was on a spirin when this episode occurred. Her symptoms have almost completely resolved. She has been initi ated on Plavix, as well as continuing aspirin 81 mg therapy. It was recommended she follow up in the outpatient setting with her litigation secretary for cardiac monitoring, as well as reviewing her carotid ul trasound results. She is in agreement with this plan. I have educated the patient with regard to he r condition and symptoms. I have instructed her to return to the emergency room if her aphasia shoul d return or if she has any new onset of symptoms. She is in agreement with this plan. DISCHARGE MEDICATIONS: Please refer to EMR form. I have provided the patient a prescription for Arnulfo vix 75 mg daily at the time of disposition. She is to continue her previously prescribed home medica tions as previously ordered. FOLLOWUP: Followup will be with Johnnie Morales, her litigation secretary, as well as Dr. Dorian Brar and Ken de jesus. /[id number]/MODL
== END 2018-10-24 14:50 | disposition home or self-care (01) ==
LOC: F3N 21:46
PROVIDERS: ADMIT Internal Medicine; ATTEND Family Medicine
DX: G45.9 Transient cerebral ischemic attack, unspecified (principal); I10 Essential (primary) hypertension; E11.9 Type 2 diabetes mellitus without complications; E78.5 Hyperlipidemia, unspecified; I25.10 Atherosclerotic heart disease of native coronary artery without angina pectoris; M48.02 Spinal stenosis, cervical region; Z95.5 Presence of coronary angioplasty implant and graft; Z98.1 Arthrodesis status
CPT/HCPCS: 70450; 70496; 70498; 70553; 92523; 93005; 93306; 96374; 97161; 99285; G0378; 82435-PO; 82565-PO; 82947-PO; 84132-PO; 84295-PO; 84484-ER; 84520-PO; 85014-ER; A9585; J3360; Q9967

== ENCOUNTER 2018-11-21 11:50 | Day surgery (SDC) | payer OTHER ==
[2018-11-21] MEDS ORDERED: LIDOCAINE 1% 300 MG/30 ML SDV SC ONE (11:53)
--- NOTE | 2018-11-21 13:24 | PDHPUP ---
History & Physical Update H&P update statement: This history and physical update is based on an assessment of the patient which was completed after admission or registration (within 24 hours), but prior to the surgery/procedure.Risk and benefits of Loop recorder discussed. Pt agreeable to pursue. 63 yo F with hx of TIA last month. H&P update: H&P reviewed & patient examined, no change in patient's condition since H&P completed
== END 2018-11-21 14:27 | disposition home or self-care (01) ==
LOC: FCATH 11:50
PROVIDERS: ATTEND Internal Medicine Cardiovascular Disease
PROC: 0JH602Z Insertion of Monitoring Device into Chest Subcutaneous Tissue and Fascia, Open Approach (ICD-10-PCS; principal; 2018-11-21)
DX: G45.9 Transient cerebral ischemic attack, unspecified (principal); I25.10 Atherosclerotic heart disease of native coronary artery without angina pectoris; I10 Essential (primary) hypertension; E78.5 Hyperlipidemia, unspecified; I77.9 Disorder of arteries and arterioles, unspecified; Z87.442 Personal history of urinary calculi
CPT/HCPCS: C1764

== ENCOUNTER 2018-12-12 10:37 | Emergency (ER) | payer OTHER ==
[2018-12-12] MEDS ORDERED: NS 1,000 ML IV ONE (10:58)
--- NOTE | 2018-12-12 10:59 | EDPHY ---
H & P Stated Complaint: right sided flank pain, CT yesterday showed inflammed pacreas Time Seen by Provider: 12/12/18 10:59 HPI/ROS: HPI: This is a 63-year-old female who presents with Chief Complaint: Right-sided flank pain, concerns of pancreatitis from Urology Location: Right-sided flank Quality: Sharp, spasm like pain Duration: Several days Signs and Symptoms: no fever, no nausea, no vomiting, no hematemesis, no blood in stool, no abdominal bloating, no diarrhea, no back pain, no urinary symptoms , no vaginal bleeding/discharge, no indigestion, no chest pain, no shortness of breath Timing: Acute, daily Severity: Moderate Context: Patient reports that several day history of right-sided flank and right lumbar right-sided pain that is described as sharp and spasm like pain that comes and goes. She reports that it happens daily. Nothing makes the pain better or worse. She currently denies any pain in her right lower back and right flank. She was seen by [facility] yesterday by HILTON Yo and had a CT abdomen and pelvis scan ordered that showed no stone but did show fluid on the pancreatic head that was concerning for pancreatitis. Patient reports that she does not regularly drink alcohol. No history of hyperlipidemia. She denies any epigastric pain, nausea, vomiting, hematemesis, blood in stool. Patient denies any change in bowel or bladder habits. She has no radicular-type symptoms for her lower back pain. Patient also reports some blood in her urine over the last few days. Modifying Factors: Regular home medications with no relief Comment: ROS: A comprehensive 10 system review of systems is otherwise negative aside from elements mentioned in the history of present illness. MEDICAL/SURGICAL/SOCIAL HISTORY: Medical history: Chronic back pain, diabetes mellitus type 2, hypertension thyroidectomy, DM2, MAE Surgical history: Lower back and cervical fusions, appendectomy, , ortho surgery on knees and ankles, cardiac stent June 2012 Social history: Never smoked. Denies alcohol use. Family history noncontributory. CONSTITUTIONAL: Overweight, tearful elderly white female, nontoxic in appearance, awake and alert, no obvious distress HEENT: Atraumatic and normocephalic, PERRL, EOMI. Nares patent; no rhinorrhea; no nasal mucosal edema. Tympanic membranes clear. Oropharynx clear, no exudate and moist pink mucosa. Airway patent. No lymphadenopathy. No meningismus. Cardiovascular: Normal S1/S2, regular rate, regular rhythm, without murmur rub or gallop. PULMONARY/CHEST: Symmetrical and nontender. Clear to auscultation bilaterally. Good air movement. No accessory muscle usage. ABDOMEN: Soft, nondistended, nontender, no rebound, no guarding, no peritoneal signs, no masses or organomegaly. No CVAT. BACK: No midline tenderness, right-sided reproducible paraspinous muscle lower lumbar tenderness in several trigger spots. no paraspinous spasm, deep tendon reflexes 2/2, no pain with straight leg raise, No foot drop. Achilles reflexes are equal bilaterally. Able to walk on heels and toes without difficulty. EXTREMITIES: 2/2 pulses, strength 5/5, no deformities, no clubbing, no cyanosis or edema. NEUROLOGICAL: no focal neuro deficits. GCS 15. SKIN: Warm and dry, no erythema. no rash. Good capillary refill. Source: Patient Exam Limitations: No limitations - Personal History Current Tetanus/Diphtheria Vaccine: Yes Current Tetanus Diphtheria and Acellular Pertussis (TDAP): Yes Tetanus Vaccine Date: 11/2011 - Medical/Surgical History Hx Asthma: No Hx Chronic Respiratory Disease: No Hx Diabetes: Yes Hx Cardiac Disease: Yes Hx Renal Disease: No Hx Cirrhosis: No Hx Alcoholism: No Hx HIV/AIDS: No Hx Splenectomy or Spleen Trauma: No Other PMH: cardiac stent 06/2012, lower back & cervical fusions. appy, csec, ortho surgery, knees, ankles. thyroidectomy, DM2, MAE - Social History Smoking Status: Never smoked Constitutional: Initial Vital Signs Temperature (C) 36.7 C 12/12/18 10:40 Heart Rate 63 12/12/18 10:40 Respiratory Rate 18 12/12/18 10:40 Blood Pressure 156/72 H 12/12/18 10:40 O2 Sat (%) 95 12/12/18 10:40 O2 Delivery Mode Room Air Allergies/Adverse Reactions: ergot alkaloids [Ergot Alkaloids] Allergy (Severe, Verified 12/12/18 10:39) cant walk Penicillins Allergy (Severe, Verified 12/12/18 10:39) Rash cefaclor [From Ceclor] Allergy (Intermediate, Verified 12/12/18 10:39) bruising cyclobenzaprine HCl [From Flexeril] Allergy (Mild, Verified 12/12/18 10:39) rash, swelling metoclopramide HCl [From Reglan] Allergy (Mild, Verified 12/12/18 10:39) anxiety attacks methocarbamol [From Robaxin] Allergy (Verified 12/12/18 10:39) Other-Enter Comments plastic tape Allergy (Intermediate, Uncoded 10/23/18 17:51) Other-Enter Comments Home Medications: Medication Instructions Recorded Pinson-3 Fatty Acids [Fish Oil 1000 2,000 mg PO DAILY 01/29/17 mg (*)] metFORMIN HCL [Metformin HCl] 500 mg PO BIDMEAL 01/29/17 Aspirin EC [Aspirin EC 81 mg (*)] 81 mg PO DAILY #0 tab 02/09/17 Atorvastatin Calcium [Lipitor 20 20 mg PO DAILY #0 tab 02/09/17 mg (*)] Famotidine [Pepcid 20 MG (*)] 20 mg PO DAILY #0 tab 02/09/17 Metoprolol Tartrate [Lopressor 25 25 mg PO BID #0 tab 02/09/17 mg (*)] Nitroglycerin [Nitrostat 0.4 mg 0.4 mg SL AD PRN #0 btl 02/09/17 (*)] Acetaminophen [Tylenol ES 500 mg 500 - 1,000 mg PO Q6HRS PRN #0 tab 02/10/17 (*)] Cholecalciferol Vit D3 [Vitamin D3 1,000 units PO DAILY 02/10/17 (*)] Carisoprodol [Soma (*)] 350 mg PO TIDMEAL PRN 07/27/17 Clopidogrel Bisulfate [Plavix (*)] 75 mg PO DAILY #30 tab 10/24/18 Diazepam [Valium 5 MG (*)] 5 mg PO Q4HRS PRN 12/12/18 Hydrocodone/APAP 5/325 [[place] 1 each PO Q4-6PRN PRN 12/12/18 5/325 (*)] Lisinopril [Zestril 10 mg (*)] 10 mg PO DAILY 12/12/18 Ondansetron Odt [Zofran Odt 4 mg 4 mg PO Q4 PRN #12 tab 12/12/18 (*)] Tamsulosin HCl [Flomax 0.4 MG (*)] 0.4 mg PO HS 12/12/18 Medical Decision Making - Diagnostics Imaging Results: Imaging Impressions Abdomen Ultrasound 12/12/18 11:41 Impression: 1. No acute process. 2. Fatty liver. 3. Gallbladder sludge and nonshadowing stones versus polyps measuring 3 mm. Findings and recommendations discussed with Bella Smith at 1231 hour, 2018. ED Course/Re-evaluation: Vital signs reviewed and stable upon arrival. No systemic signs. IV access, laboratory studies, urinalysis ordered Patient politely declined pain medications during my interview. CT abdomen pelvis scan sent to Radiology to upload into the system. 1140: Laboratory studies reviewed. No leukocytosis, no anemia, no platelet dysfunction, no acute kidney injury, no electrolyte imbalance. T bili 1.5, unconjugated bili 1.3, AST 63, ALT 94, lipase 390 1142: Right upper quadrant ultrasound ordered 1150: RN notified me that patient now requesting pain medications- IV morphine 4 mg and IV Zofran 4 mg given 1246: By radiologist, Dr. Valentin, who reports right upper quadrant ultrasound shows Fatty liver, Gallbladder sludge and nonshadowing stones versus polyps measuring 3 mm. No avinash signs of cholecystitis. No common bile duct dilatation. No pancreatic mass, no signs of pancreatitis, she does have a fatty pancreas but no stranding. 1327: Obtained CT report from outside source that shows normal gallbladder, intrahepatic and extrahepatic bile ducts are nondilated, fluid and straining surrounding the pancreatic head, neck and body. No focal lesion. No duct dilatation. 1.2 cm right ovarian cyst. 1.5 cm left renal cyst no calculi or hydronephrosis. 1333: Urinalysis unremarkable, no hematuria, no signs of infection Patient is tolerating p.o. Without a white count or signs of sepsis or cholecystitis. Recommend outpatient gastroenterology follow-up to determine candidacy for HIDA scan verses laparoscopic cholecystectomy. Patient feels comfortable with this plan. This patient was seen under the supervision of my primary supervising physician. I evaluated and cared for this patient with attending. Discussed this patient with Dr. Macdonald. Differential Diagnosis: Flank pain including but not limited to musculoskeletal causes, kidney stone, pyelonephritis, shingles, and intra-abdominal causes such as diverticulitis and appendicitis. - Data Points Laboratory Results: Laboratory Results 12/12/18 10:55 12/12/18 10:55 12/12/18 12/12/18 12/12/18 12:40 10:55 10:55 WBC 7.40 10^3/uL 10^3/uL (3.80-9.50) RBC 4.69 10^6/uL 10^6/uL (4.18-5.33) Hgb 13.7 g/dL g/dL (12.6-16.3) Hct 41.7 % % (38.0-47.0) MCV 88.9 fL fL (81.5-99.8) MCH 29.2 pg pg (27.9-34.1) MCHC 32.9 g/dL g/dL (32.4-36.7) RDW 14.5 % % (11.5-15.2) Plt Count 281 10^3/uL 10^3/uL (150-400) MPV 10.1 fL fL (8.7-11.7) Neut % (Auto) 50.1 % % (39.3-74.2) Lymph % (Auto) 39.9 % % (15.0-45.0) [place] % (Auto) 8.9 % % (4.5-13.0) Eos % (Auto) 0.7 % % (0.6-7.6) Baso % (Auto) 0.3 % % (0.3-1.7) Nucleat RBC Rel Count 0.0 % % (0.0-0.2) Absolute Neuts (auto) 3.71 10^3/uL 10^3/uL (1.70-6.50) Absolute Lymphs (auto) 2.95 10^3/uL 10^3/uL (1.00-3.00) Absolute Monos (auto) 0.66 10^3/uL 10^3/uL (0.30-0.80) Absolute Eos (auto) 0.05 10^3/uL 10^3/uL (0.03-0.40) Absolute Basos (auto) 0.02 10^3/uL 10^3/uL (0.02-0.10) Absolute Nucleated RBC 0.00 10^3/uL 10^3/uL (0-0.01) Immature Gran % 0.1 % % (0.0-1.1) Immature Gran # 0.01 10^3/uL 10^3/uL (0.00-0.10) Sodium 140 mEq/L mEq/L (135-145) Potassium 4.5 mEq/L mEq/L (3.5-5.2) Chloride 106 mEq/L mEq/L (97-110) Carbon Dioxide 22 mEq/l mEq/l (22-31) Anion Gap 12 mEq/L mEq/L (6-14) BUN 34 mg/dL H mg/dL (7-23) Creatinine 0.7 mg/dL mg/dL (0.6-1.0) Estimated GFR > 60 Glucose 102 mg/dL H mg/dL (70-100) Calcium 9.6 mg/dL mg/dL (8.5-10.4) Total Bilirubin 1.5 mg/dL H mg/dL (0.1-1.4) Conjugated Bilirubin 0.2 mg/dL mg/dL (0.0-0.5) Unconjugated Bilirubin 1.3 mg/dL H mg/dL (0.0-1.1) AST 63 IU/L H IU/L (14-46) ALT 94 IU/L H IU/L (9-52) Alkaline Phosphatase 80 IU/L IU/L (38-126) Total Protein 7.5 g/dL g/dL (6.3-8.2) Albumin 4.6 g/dL g/dL (3.5-5.0) Lipase 390 IU/L H IU/L (23-300) Urine Color PALE YELLOW Urine Appearance CLEAR Urine pH 6.0 (5.0-7.5) Ur Specific [place] 1.003 (1.002-1.030) Urine Protein NEGATIVE (NEGATIVE) Urine Ketones NEGATIVE (NEGATIVE) Urine Blood NEGATIVE (NEGATIVE) Urine Nitrate NEGATIVE (NEGATIVE) Urine Bilirubin NEGATIVE (NEGATIVE) Urine Urobilinogen NEGATIVE EU EU (0.2-1.0) Ur Leukocyte Esterase NEGATIVE (NEGATIVE) Urine Glucose NEGATIVE (NEGATIVE) Medications Given: Discontinued Medications Sodium Chloride (Ns) 1,000 mls @ 0 mls/hr IV EDNOW ONE; Wide Open PRN Reason: Protocol Stop: 12/12/18 10:59 Last Admin: 12/12/18 11:12 Dose: 1,000 mls Morphine Sulfate (Morphine) 4 mg IVP EDNOW ONE Stop: 12/12/18 11:50 Last Admin: 12/12/18 11:53 Dose: 2 mg Ondansetron HCl (Zofran) 4 mg IVP EDNOW ONE Stop: 12/12/18 11:50 Last Admin: 12/12/18 12:00 Dose: Not Given Departure - Departure Disposition: Home, Routine, Self-Care Clinical Impression: Biliary colic, Gallbladder sludge Condition: Good Instructions: Biliary Colic (ED), Low Fat Diet (ED), HIDA Scan (DC), Gallbladder Ejection Fraction (DC) Additional Instructions: Consume a minimum of 8-10 glasses of water or electrolyte fluid replacement drinks that include Gatorade, Powerade, Pedialyte. Eat a low-fat bland diet. Take Zofran 1 tab every 4 hours as needed for nausea, vomiting. There is no blood in your urine today. Follow-up with Gastroenterology in the next 5-7 days for further evaluation. They may order a HIDA scan or recommend your gallbladder removal outpatient. Referrals: Dorian Brar MD [Primary Care Provider] - As per Instructions Robbin Batres MD, FACG [Medical Doctor] - As per Instructions Prescriptions: Ondansetron Odt [Zofran Odt 4 mg (*)] 4 mg PO Q4 PRN #12 tab PRN Reason: Nausea/Vomiting, Use 1st
[2018-12-12 11:19] LABS: PLATELET COUNT 281 10^3/uL (150-400)
[2018-12-12] MEDS ORDERED: ONDANSETRON 4 MG/2 ML VIAL IVP ONE (11:49)
[2018-12-12 13:24] VITALS: BP 142/73
== END 2018-12-12 14:13 | disposition home or self-care (01) ==
DX: K80.50 Calculus of bile duct without cholangitis or cholecystitis without obstruction (principal); K82.8 Other specified diseases of gallbladder; K76.0 Fatty (change of) liver, not elsewhere classified; K86.89 Other specified diseases of pancreas; R31.9 Hematuria, unspecified; E11.9 Type 2 diabetes mellitus without complications; I10 Essential (primary) hypertension; M54.9 Dorsalgia, unspecified; G89.29 Other chronic pain; Z98.1 Arthrodesis status; Z95.5 Presence of coronary angioplasty implant and graft; Z79.82 Long term (current) use of aspirin; Z79.84 Long term (current) use of oral hypoglycemic drugs; Z79.899 Other long term (current) drug therapy
CPT/HCPCS: 96374; J2270

== ENCOUNTER 2019-01-04 12:57 | Emergency (ER) | payer OTHER ==
--- NOTE | 2019-01-04 13:33 | EDPHY ---
H & P Stated Complaint: slipped on akm grease fell hit head /neck pain nausea on plavix Time Seen by Provider: 01/04/19 13:25 HPI/ROS: Chief complaint: Head and neck injury History of present illness: This is a 63-year-old female who presents to the emergency department for a head and neck injury. Just prior to arrival she was at home cooking when she slipped on kam grease that had spilled onto the floor causing her to fall backwards onto the ground and hit the back right side of her head. She did not lose consciousness. However since then she has had pain in her head and the right side of her neck. She was dazed. She was nauseated without vomiting, nausea has resolved. She denies pain or trauma to other parts of body including the rest the back, chest, abdomen, pelvis or extremities. No neurologic symptoms such as paresthesias, weakness or paralysis , bowel or bladder dysfunction. Review of systems: A 10 point review of systems was obtained and other than described above was negative - Personal History Current Tetanus Diphtheria and Acellular Pertussis (TDAP): Yes Tetanus Vaccine Date: 11/2011 - Medical/Surgical History Hx Asthma: No Hx Chronic Respiratory Disease: No Hx Diabetes: Yes Hx Cardiac Disease: Yes Hx Renal Disease: No Hx Cirrhosis: No Hx Alcoholism: No Hx HIV/AIDS: No Hx Splenectomy or Spleen Trauma: No Other PMH: cardiac stent 06/2012, lower back & cervical fusions. appy, csec, ortho surgery, knees, ankles. thyroidectomy, DM2, MAE - Social History Smoking Status: Never smoked - Physical Exam Exam: General Appearance: Alert, nontoxic Eyes: PERRLA. No raccoon eyes. ENT: No hemotympanum, no espino sign. Respiratory: Lungs clear to auscultation bilaterally. Cardiac: Regular rate and rhythm. Gastrointestinal: Bowel sounds normal. Abdomen soft, nondistended, nontender. Neurological: Alert and oriented x4. Cranial nerves 2-12 grossly intact. Strength and sensation intact and symmetrical. Skin: Hematoma noted to the right parieto-occipital scalp. No open wounds. Musculoskeletal: Tenderness around the hematoma on palpation of the scalp otherwise the rest of the head is nontender without crepitus or bony deformity. There is no tenderness along the spine it. No crepitus or step-off noted. Tenderness to the right side of the neck. Constitutional: Initial Vital Signs Temperature (C) 37.1 C 01/04/19 13:05 Heart Rate 84 01/04/19 13:05 Respiratory Rate 18 01/04/19 13:05 Blood Pressure 136/73 H 01/04/19 13:05 O2 Sat (%) 93 01/04/19 13:05 O2 Delivery Mode Room Air Allergies/Adverse Reactions: ergot alkaloids [Ergot Alkaloids] Allergy (Severe, Verified 01/04/19 13:04) cant walk Penicillins Allergy (Severe, Verified 01/04/19 13:04) Rash cefaclor [From Ceclor] Allergy (Intermediate, Verified 01/04/19 13:04) bruising cyclobenzaprine HCl [From Flexeril] Allergy (Mild, Verified 01/04/19 13:04) rash, swelling metoclopramide HCl [From Reglan] Allergy (Mild, Verified 01/04/19 13:04) anxiety attacks methocarbamol [From Robaxin] Allergy (Verified 01/04/19 13:04) Other-Enter Comments plastic tape Allergy (Intermediate, Uncoded 10/23/18 17:51) Other-Enter Comments Home Medications: Medication Instructions Recorded Dalton-3 Fatty Acids [Fish Oil 1000 2,000 mg PO DAILY 01/29/17 mg (*)] metFORMIN HCL [Metformin HCl] 500 mg PO BIDMEAL 01/29/17 Aspirin EC [Aspirin EC 81 mg (*)] 81 mg PO DAILY #0 tab 02/09/17 Atorvastatin Calcium [Lipitor 20 20 mg PO DAILY #0 tab 02/09/17 mg (*)] Famotidine [Pepcid 20 MG (*)] 20 mg PO DAILY #0 tab 02/09/17 Metoprolol Tartrate [Lopressor 25 25 mg PO BID #0 tab 02/09/17 mg (*)] Nitroglycerin [Nitrostat 0.4 mg 0.4 mg SL AD PRN #0 btl 02/09/17 (*)] Acetaminophen [Tylenol ES 500 mg 500 - 1,000 mg PO Q6HRS PRN #0 tab 02/10/17 (*)] Cholecalciferol Vit D3 [Vitamin D3 1,000 units PO DAILY 02/10/17 (*)] Carisoprodol [Soma (*)] 350 mg PO TIDMEAL PRN 07/27/17 Clopidogrel Bisulfate [Plavix (*)] 75 mg PO DAILY #30 tab 10/24/18 Diazepam [Valium 2 MG (*)] 2 mg PO Q8 PRN #10 tab 12/12/18 Diazepam [Valium 5 MG (*)] 5 mg PO Q4HRS PRN 12/12/18 Hydrocodone/APAP 5/325 [[place] 1 each PO Q4-6PRN PRN 12/12/18 5/325 (*)] Lisinopril [Zestril 10 mg (*)] 10 mg PO DAILY 12/12/18 Ondansetron Odt [Zofran Odt 4 mg 4 mg PO Q4 PRN #12 tab 12/12/18 (*)] Tamsulosin HCl [Flomax 0.4 MG (*)] 0.4 mg PO HS 12/12/18 Carisoprodol [SOMA] 350 mg PO TID #6 tablet 01/04/19 Clopidogrel 01/04/19 Medical Decision Making - Diagnostics Imaging Results: Imaging Impressions Cervical Spine CT 01/04/19 13:31 Impression: There is a small superior posterior right parietal scalp hematoma, but no acute intracranial abnormality identified on this unenhanced CT evaluation. UNENHANCED CT SCAN OF THE CERVICAL SPINE Technique: A multidetector unenhanced helical CT scan was obtained from the clivus caudally through the upper thoracic spine, with images reformatted at 1.25 and 0.625 mm increments, and are reviewed in soft tissue, bone, and lung windows. Parasagittal and paracoronal reconstructed images are reviewed on the workstation. The DFOV is 18.7 cm. A dose reduction protocol was used. Findings: There is a mild biphasic cervical scoliosis. There is straightening of the normal cervical lordosis. There is 2 mm of C2 above C3, and also 2 mm of C7 anterolisthesis above T1, stable from 10/23/2018. The patient has undergone prior ACDF from C5 to C7 with a ventrally applied plate secured by bilateral transcervical screws terminating in each respective centrum. The patient has also had diskectomies and placement of interbody prostheses, and osseous fusion appears relatively complete. There is advanced degenerative disk space narrowing at C4-C5 with a vacuum disk phenomenon and large ventral traction osteophytes. There is no acute fracture or facet malalignment. The interspinous distances are appropriate. The prevertebral soft tissues are notable for some left thyroidectomy clips. The right lobe of the thyroid gland appears normal. The lung apices are clear. At C1-C2 level, there is atlantoaxial lateral mass alignment. The base and the tip of the dens are normal. There are some mild osseous hypertrophy at the predental space. The AP canal diameter is patent at this level. 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 There is a tiny dorsal disk osteophyte complex. The neural foramina are patent. At C3-C4 level, there is a small right uncovertebral degenerative osteophyte slightly impinging the right neural foramen. The left neural foramen is patent. There is a tiny disk osteophyte slightly effacing the ventral thecal sac. At the C4-C5 level, there is severe degenerative disk space narrowing with ventral traction osteophytes and a vacuum disk phenomenon. Uncovertebral spondylosis results in severe bilateral neural foraminal stenosis. There is also at least a moderate degree of central canal stenosis with a dorsal disk osteophyte complex. At the C5-C6 level, the patient has undergone prior ACDF. There is mild facet hypertrophy and uncovertebral degenerative spondylosis resulting in moderate right and mild to moderate left neural foraminal stenosis. The central canal is patent. At the C6-C7 level the patient has undergone prior ACDF. Uncovertebral degenerative spondylosis results in moderate right neural foraminal stenosis. The left neural foramen is patent, as is the AP canal diameter. At C7-T1 level, there is asymmetric right greater than left facet hypertrophy resulting in a moderate degree of right neural foraminal stenosis. The left neural foramen is still patent, as is the AP canal diameter. Impression: 1. Status post ACDF C5-C7 with interbody osseous fusion. 2. Advanced degenerative disk disease and spondylosis at C4-C5 with severe bilateral neural foraminal stenosis and moderate central canal stenosis. 3. There is no acute cervical osseous abnormality identified. Please see the above discussion for other ancillary findings. If there is further clinical concern regarding the patient's symptoms, correlative MR imaging could be considered, if otherwise not contraindicated. Findings were discussed with HILTON Jacobs at 14:21, on 01/04/2019. Head CT 01/04/19 13:31 Impression: There is a small superior posterior right parietal scalp hematoma, but no acute intracranial abnormality identified on this unenhanced CT evaluation. UNENHANCED CT SCAN OF THE CERVICAL SPINE Technique: A multidetector unenhanced helical CT scan was obtained from the clivus caudally through the upper thoracic spine, with images reformatted at 1.25 and 0.625 mm increments, and are reviewed in soft tissue, bone, and lung windows. Parasagittal and paracoronal reconstructed images are reviewed on the workstation. The DFOV is 18.7 cm. A dose reduction protocol was used. Findings: There is a mild biphasic cervical scoliosis. There is straightening of the normal cervical lordosis. There is 2 mm of C2 above C3, and also 2 mm of C7 anterolisthesis above T1, stable from 10/23/2018. The patient has undergone prior ACDF from C5 to C7 with a ventrally applied plate secured by bilateral transcervical screws terminating in each respective centrum. The patient has also had diskectomies and placement of interbody prostheses, and osseous fusion appears relatively complete. There is advanced degenerative disk space narrowing at C4-C5 with a vacuum disk phenomenon and large ventral traction osteophytes. There is no acute fracture or facet malalignment. The interspinous distances are appropriate. The prevertebral soft tissues are notable for some left thyroidectomy clips. The right lobe of the thyroid gland appears normal. The lung apices are clear. At C1-C2 level, there is atlantoaxial lateral mass alignment. The base and the tip of the dens are normal. There are some mild osseous hypertrophy at the predental space. The AP canal diameter is patent at this level. 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 There is a tiny dorsal disk osteophyte complex. The neural foramina are patent. At C3-C4 level, there is a small right uncovertebral degenerative osteophyte slightly impinging the right neural foramen. The left neural foramen is patent. There is a tiny disk osteophyte slightly effacing the ventral thecal sac. At the C4-C5 level, there is severe degenerative disk space narrowing with ventral traction osteophytes and a vacuum disk phenomenon. Uncovertebral spondylosis results in severe bilateral neural foraminal stenosis. There is also at least a moderate degree of central canal stenosis with a dorsal disk osteophyte complex. At the C5-C6 level, the patient has undergone prior ACDF. There is mild facet hypertrophy and uncovertebral degenerative spondylosis resulting in moderate right and mild to moderate left neural foraminal stenosis. The central canal is patent. At the C6-C7 level the patient has undergone prior ACDF. Uncovertebral degenerative spondylosis results in moderate right neural foraminal stenosis. The left neural foramen is patent, as is the AP canal diameter. At C7-T1 level, there is asymmetric right greater than left facet hypertrophy resulting in a moderate degree of right neural foraminal stenosis. The left neural foramen is still patent, as is the AP canal diameter. Impression: 1. Status post ACDF C5-C7 with interbody osseous fusion. 2. Advanced degenerative disk disease and spondylosis at C4-C5 with severe bilateral neural foraminal stenosis and moderate central canal stenosis. 3. There is no acute cervical osseous abnormality identified. Please see the above discussion for other ancillary findings. If there is further clinical concern regarding the patient's symptoms, correlative MR imaging could be considered, if otherwise not contraindicated. Findings were discussed with HILTON Jacobs at 14:21, on 01/04/2019. Imaging: Discussed imaging studies w/ at home independent call center agent Radiologist ED Course/Re-evaluation: Patient seen under the supervision of my secondary supervising physician Dr. Dominick Delaney. Patient presents to the emergency department after a mechanical slip and fall striking her head resulting in head pain and pain on the right side of her neck. She is nontoxic. She has a small superficial hematoma. History and physical exam does not reveal other acute injuries. She has a nonfocal neurologic exam. Imaging studies are obtained and negative for significant acute injury. I believe she is safe for discharge home. Home care is discussed including head injury precautions. Pain management is discussed. She will use Tylenol. She is concerned she is going to get muscle spasms, she uses Soma occasionally but has run out. I will provide her with a prescription for 6 tablets to use as she has used it previously without trouble. She is to follow up with her primary care doctor this upcoming week for recheck. Strict return precautions are given. The patient voiced understanding and agreement with plan. Differential Diagnosis: Included but not limited to soft tissue injury, bony fracture, concussion, intracranial bleed, spinal cord injury - Data Points Medications Given: Discontinued Medications Acetaminophen (Tylenol) 1,000 mg PO EDNOW ONE Stop: 01/04/19 13:35 Last Admin: 05/12/19 13:45 Dose: 1,000 mg Departure - Departure Disposition: Home, Routine, Self-Care Clinical Impression: Neck pain Head injury Qualifiers: Encounter type: initial encounter Qualified Code(s): S09.90XA - Unspecified injury of head, initial encounter Condition: Good Instructions: Carisoprodol (By mouth), Cervical Strain (ED), Head Injury (ED) Additional Instructions: Please follow-up with your primary care doctor in the next 1-2 days for recheck If your symptoms worsen or new symptoms develop including increasing pain, neurologic symptoms such as numbness or tingling or trouble controlling the body or any other signs or symptoms develop return to the emergency department immediately for recheck. Referrals: Dorian Brar MD [Primary Care Provider] - As per Instructions Prescriptions: Carisoprodol [SOMA] 350 mg PO TID #6 tablet
[2019-01-04] MEDS ORDERED: ACETAMINOPHEN 500 MG TAB PO ONE (13:34)
[2019-01-04 14:26] VITALS: BP 144/78
== END 2019-01-04 14:35 | disposition home or self-care (01) ==
DX: S00.03XA Contusion of scalp, initial encounter (principal); M50.321 Other cervical disc degeneration at C4-C5 level; M47.812 Spondylosis without myelopathy or radiculopathy, cervical region; M48.02 Spinal stenosis, cervical region; W01.0XXA Fall on same level from slipping, tripping and stumbling without subsequent striking against object, initial encounter; Y92.000 Kitchen of unspecified non-institutional (private) residence as the place of occurrence of the external cause; Z98.1 Arthrodesis status

== ENCOUNTER → 2019-01-07 | Outpatient (CLI) | payer OTHER | LOC: FIMAGING 09:42 | PROVIDERS: ATTEND Internal Medicine | DX: R51 Headache (principal); E11.9 Type 2 diabetes mellitus without complications; Z79.01 Long term (current) use of anticoagulants ==